=== PATIENT | female | born 1940 | race Caucasian/White ===

== ENCOUNTER 2016-11-23 20:15 | Inpatient (IN) | payer OTHER, BC ==
--- NOTE | 2016-11-23 20:36 | DR.GENAD ---
HPI - Complaint/Symptoms Chief Complaint Doctors Comments: Patient complains of having a stomach virus for several days with diarrhea, nausea. Patient states she had chest pain earlier but none presently. States she is a patient of Dr. Jimenez and they have been talking about longterm placement so she can get help taking care of herself. She has been having right lower abdominal pain but denies hematuria , melanic, dysuria, fever or cills. States she has heart problems with a stent and diabetes and high blood pressure. She denies tobacco or alcohol usage. - Nurses notes reviewed Nurses Notes Review: Yes - Source History Provided: Patient, EMS - Mode of Arrival Mode of Arrival: Stretcher - Timing Came on: Gradually - Duration Duration: Intermittent How lon Duration: Days - Location Location: right lower quadrant pain - Severity Severity: Moderate - Modifying Factors Worsens:: nothing Improves:: nothing PMH - PMH Past Medical History: Anxiety, Arthritis, Asthma, COPD, Diabetes, Dyslipidemia, Hypertension, Hypothyroidism, CT Past Surgical History: Yes Surgical History: Angioplasty/Stents, Appendectomy, Cholecystectomy, Hysterectomy, Ortho Surgery - Family History Family Medical History: Diabetes Mellitus, Cancer, CT, Coronary Artery Disease, Hypertension - Social History Do you use any recreational Drugs:: No ROS - Review of Systems Constitutional: No Symptoms Reported, Weakness, Loss of Appetite. negative: See HPI, Chills, Diaphoresis, Fever, Malaise, Irritable, Fatigue, Other Eyes: No Symptoms Reported ENTM: No Symptoms Reported Respiratoy: No Symptoms Reported Cardiovascular: No Symptoms Reported, Chest Pain. negative: See HPI, Edema, Palpitations, Syncope, Cyanosis, Skin Mottling, Other Gastrointestinal/Abdominal: No Symptoms Reported, Abdominal Pain, Diarrhea, Nausea Genitourinary: No Symptoms Reported, Frequency Neurological: No Symptoms Reported, Weakness, Problems Walking Musculoskeletal: No Symptoms Reported Integumentary: No Symptoms Reported Hematologic/Lymphatic: No Symptoms Reported Endocrine: No Symptoms Reported Psychiatric: No Symptoms Reported PE - Vital Signs Vitals: Blood Pressure [Right Arm] 118/57 Blood Pressure [Left Arm] 116/59 Blood Pressure 118/57 - General Limitations: No Limitations General Appearance: Alert, In No Apparent Distress - Head Head Exam: Normal Inspection, Atraumatic, Normocephalic - Eyes Eye exam: Normal Appearance, PERRL, EOMI. negative: Scleral Icterus, Conjunctival Injection, Nystagmus, Miosis, Mydrasis, Periorbital Swelling, Periorbital Tenderness, Other - ENT ENT Exam: Normal Exam, Normal Oropharynx, Normal External Ear Exam, Mucous Membranes Moist, TM's Normal Bilaterally External Ear Exam: Normal External Inspection TM/Canal Exam: Bilateral Normal Nose Exam: Normal Nose Exam Mouth Exam: Normal Inspection Throat Exam: Normal Inspection - Neck Neck Exam: Normal Inspection - Chest Chest Inspection: Normal Inspection, Symmetric Chest Wall Rise - Respiratory Respiratory Exam: Normal Lung Sounds Bilat Respiratory Exam: Bilateral Clear to Auscultation - Cardiovascular Cardiovascular Exam: Regular Rate, Normal Rhythm, Normal Heart Sounds, Systolic Murmur - Abdominal Exam Abdominal Exam: Normal Inspection, Normal Bowel Sounds, Soft Abdominal Tenderness: Epigastrium, Mild - Extremities Extremities Exam: Normal Inspection, Full ROM, Normal Capillary Refill. negative: Tenderness, Edema, Joint Swelling, Calf Tenderness, Other - Back Back Exam: Normal Inspection, Full ROM - Neurologic Neurological Exam: Alert, Oriented X3, CN II-XII Intact, Reflexes Normal. negative: Normal Gait (gait not tested) - Psychiatric Psychiatric Exam: Normal Affect, Normal Mood - Skin Skin Exam: Warm, Dry, Intact, Normal Color Course - Reevaluation 1st: Improved - Consultation Called: 23:49 Call Returned: 23:49 (Dr. Mckeon to admit) - Education/Counseling Education/Counseling: Patient, Family Educated On: Treatment, Diagnosis, Prognosis, Needs for Follow Up ROR - Labs Reviewed Laboratory Results Reviewed?: Yes (all labs and x-ray results reviewed and discussed with pataient) Result Diagrams: 11/23/16 20:31 11/23/16 21:00 Laboratory: WBC 6.5 X10^3/uL (3.6-10.0) 11/23/16 20:31 RBC 4.69 X10^6/uL (3.5-5.4) 11/23/16 20:31 Hgb 13.7 g/dL (12.0-16.0) 11/23/16 20:31 Hct 42.0 % (36.0-47.0) 11/23/16 20:31 MCV 89.6 fL (80.0-100.0) 11/23/16 20:31 MCH 29.3 pg (27.0-34.0) 11/23/16 20:31 MCHC 32.7 g/dL (33.0-35.0) L 11/23/16 20:31 RDW 15.8 % (11.6-16.5) 11/23/16 20:31 Plt Count 262 X10^3/uL (150.0-450.0) 11/23/16 20:31 MPV 8.0 fL (7.4-11.0) 11/23/16 20:31 Neut % 66.0 % (42.0-75.0) 11/23/16 20:31 Lymph % 20.9 % (21.0-51.0) L 11/23/16 20:31 [place] % 9.5 % (0.0-13.0) 11/23/16 20:31 Eos % 2.7 % (0.9-2.9) 11/23/16 20:31 Baso % 0.9 % (0.2-1.0) 11/23/16 20:31 Neut # 4.3 x10^3/uL (2.2-4.8) 11/23/16 20:31 Lymph # 1.4 X10^3/uL (1.3-2.9) 11/23/16 20:31 [place] # 0.6 x10^3/uL (0.3-0.8) 11/23/16 20:31 Eos # 0.2 x10^3/uL (0.0-0.2) 11/23/16 20:31 Baso # 0.1 X10^3/uL (0.0-0.1) 11/23/16 20:31 Absolute Nucleated RBC 0.1 /100WBC 11/23/16 20:31 INR Target Range - 11/23/16 21:00 INR 2.35 (0.8-1.3) H 11/23/16 21:00 PTT 32.9 SECONDS (22.9-36.5) 11/23/16 21:00 PTT Comment - 11/23/16 21:00 Sodium 140 mmol/L (136-145) 11/23/16 21:00 Corrected Sodium TNP 11/23/16 21:00 Potassium 3.7 mmol/L (3.5-5.1) 11/23/16 21:00 Chloride 107 mmol/L (98-107) 11/23/16 21:00 Carbon Dioxide 22.3 mmol/L (21-32) 11/23/16 21:00 BUN 21 mg/dL (7-18) H 11/23/16 21:00 Creatinine 1.04 mg/dL (0.55-1.02) H 11/23/16 21:00 Est GFR (MDRD) Af Amer > 60 (>60) 11/23/16 21:00 Est GFR (MDRD) Non-Af 55 (>60) L 11/23/16 21:00 Glucose 105 mg/dL (65-99) H 11/23/16 21:00 Calcium 9.4 mg/dL (8.5-10.1) 11/23/16 21:00 Corrected Calcium TNP 11/23/16 21:00 Magnesium 1.7 mg/dL (1.7-2.9) 11/23/16 21:00 Total Bilirubin 0.50 mg/dL (0.2-1.0) 11/23/16 21:00 AST 21 Units/L (15-37) 11/23/16 21:00 ALT 22 Units/L (12-78) 11/23/16 21:00 Alkaline Phosphatase 106 Units/L (46-116) 11/23/16 21:00 Creatine Kinase 71 Units/L (26-192) 11/23/16 21:00 CK-MB (CK-2) 1.2 ng/mL (0-4.0) 11/23/16 21:00 CK/CKMB % Calc 1.7 % (<4) 11/23/16 21:00 Troponin I < 0.02 ng/mL (0-1.5) 11/23/16 21:00 Total Protein 8.8 g/dL (6.4-8.2) H 11/23/16 21:00 Albumin 3.4 g/dL (3.4-5.0) 11/23/16 21:00 Globulin 5.4 g/dL (2.5-4.5) H 11/23/16 21:00 Albumin/Globulin Ratio 0.6 Ratio (1.1-2.1) L 11/23/16 21:00 Specimen Type Clean catch urine 11/23/16 22:21 Urine Color Yellow (YELLOW) 11/23/16 22:21 Urine Appearance Slightly hazy (CLEAR) 11/23/16 22:21 Urine pH 5.0 (5.0 - 8.0) 11/23/16 22:21 Ur Specific [place] 1.020 (1.000-1.030) 11/23/16 22:21 Urine Protein 2+ (NEGATIVE) 11/23/16 22:21 Urine Glucose (UA) Negative (NEGATIVE) 11/23/16 22:21 Urine Ketones Negative (NEGATIVE) 11/23/16 22:21 Urine Occult Blood 2+ (NEGATIVE) 11/23/16 22:21 Urine Nitrite Positive (NEGATIVE) 11/23/16 22:21 Urine Bilirubin Negative (NEGATIVE) 11/23/16 22:21 Urine Urobilinogen Normal (NORMAL) 11/23/16 22:21 Ur Leukocyte Esterase 3+ (NEGATIVE) 11/23/16 22:21 Urine RBC 0-3 /HPF (NEGATIVE) 11/23/16 22:21 Urine WBC 20-25 /HPF (NEGATIVE) 11/23/16 22:21 Ur Squamous Epith Cells Rare /HPF (NEGATIVE) 11/23/16 22:21 Urine Bacteria 2+ /HPF (NEGATIVE) 11/23/16 22:21 Ur Culture Indicated? Yes/culture set up 11/23/16 22:21 - XRAY XRAY Interpreted by: Radiologist (CXR: No acute cardiopulmonary disease) - Diagnosis Discharge Problem: Gastroenteritis, Hyperglycemia Urinary tract infection Qualifiers: Urinary tract infection type: acute cystitis Hematuria presence: without hematuria Qualified Code(s): N30.00 - Acute cystitis without hematuria Chronic kidney disease Qualifiers: Chronic kidney disease stage: stage 3 (moderate) Qualified Code(s): N18.3 - Chronic kidney disease, stage 3 (moderate) - Discharge Plan Disposition: ADMITTED INPATIENT Condition: Stable - Follow ups/Referrals Follow ups/Referrals: Pradip Jimenez [Primary Care Provider] - 3 days - Instructions
--- NOTE | 2016-11-23 21:07 | RAD ---
HISTORY: 75-year-old female with chest pain and shortness of breath. Study: Single frontal view of the chest. Comparison: Chest radiograph May 27, 2016 Findings: Study is limited secondary to patient body habitus, technique and excessive quantum mottle. The trachea is midline. The cardiac silhouette is stably enlarged. Chronic prominence of the inter stitium. Low lung volumes without focal consolidation, effusion or pneumothorax. The bony thorax is unremarkable. IMPRESSION: 1. No acute cardiopulmonary disease. Reported By:
[2016-11-23 21:10] LABS: BASOPHILS # (AUTO) 0.1 X10^3/uL (0.0-0.1); BASOPHILS % (AUTO) 0.9 % (0.2-1.0); EOSINOPHILS # (AUTO) 0.2 x10^3/uL (0.0-0.2); EOSINOPHILS % (AUTO) 2.7 % (0.9-2.9); HEMOGLOBIN 13.7 g/dL (12.0-16.0); LYMPHOCYTES # (AUTO) 1.4 X10^3/uL (1.3-2.9); LYMPHOCYTES % (AUTO) 20.9 % (21.0-51.0); MEAN CORPUSCULAR HEMOGLOBIN 29.3 pg (27.0-34.0); MEAN CORPUSCULAR HGB CONC 32.7 g/dL (33.0-35.0); MEAN CORPUSCULAR VOLUME 89.6 fL (80.0-100.0); MONOCYTES # (AUTO) 0.6 x10^3/uL (0.3-0.8); MONOCYTES % (AUTO) 9.5 % (0.0-13.0); NEUTROPHILS # (AUTO) 4.3 x10^3/uL (2.2-4.8); PLATELET COUNT 262 X10^3/uL (150.0-450.0); RED BLOOD COUNT 4.69 X10^6/uL (3.5-5.4); RED CELL DISTRIBUTION WIDTH 15.8 % (11.6-16.5); WHITE BLOOD COUNT 6.5 X10^3/uL (3.6-10.0)
[2016-11-23 21:25] LABS: BLOOD UREA NITROGEN 21 mg/dL (7-18); CALCIUM 9.4 mg/dL (8.5-10.1); CARBON DIOXIDE 22.3 mmol/L (21-32); CHLORIDE 107 mmol/L (98-107); CREATININE 1.04 mg/dL (0.55-1.02); GLUCOSE 105 mg/dL (65-99); SODIUM 140 mmol/L (136-145); TROPONIN I < 0.02 ng/mL (0-1.5); eGFR BLACK RACES > 60 (>60); eGFR NON BLACK RACES 55 (>60)
[2016-11-23 21:30] LABS: ALANINE AMINOTRANSFERASE 22 Units/L (12-78); ALBUMIN 3.4 g/dL (3.4-5.0); ALKALINE PHOSPHATASE 106 Units/L (46-116); ASPARTATE AMINO TRANSFERASE 21 Units/L (15-37); CKMB % 1.7 % (<4); CREATINE KINASE 71 Units/L (26-192); CREATINE KINASE MB 1.2 ng/mL (0-4.0); MAGNESIUM 1.7 mg/dL (1.7-2.9); TOTAL PROTEIN 8.8 g/dL (6.4-8.2)
[2016-11-23 22:27] LABS: BILIRUBIN,URINE NEGATIVE (NEGATIVE); BLOOD/HEMOGLOBIN,URINE 2+ (NEGATIVE); GLUCOSE, URINE NEGATIVE (NEGATIVE); KETONES,URINE NEGATIVE (NEGATIVE); LEUKOCYTE ESTERASE ,URINE 3+ (NEGATIVE); NITRITES,URINE POSITIVE (NEGATIVE); PROTEIN,URINE 2+ (NEGATIVE); UROBILINOGEN,URINE NORMAL (NORMAL)
[2016-11-23 22:40] LABS: APPEARANCE,URINE SLIGHTLY HAZY (CLEAR); BACTERIA,URINE 2+ /HPF (NEGATIVE); COLOR,URINE YELLOW (YELLOW); RBC,URINE 0-3 /HPF (NEGATIVE); SQUAMOUS EPITHELIAL CELL,UR RARE /HPF (NEGATIVE)
[2016-11-23] MEDS: NS 1000 ML 1,000 ML IV SCH (23:38)
[2016-11-24] MEDS ORDERED: ZOFRAN INJ 4 MG VIAL IVP PRN (00:29)
[2016-11-24] MEDS: ROCEPHIN VIAL 1 GM 1 GM in NS 50 ML IV + SPIKE MINIBAG* 50 ML IV SCH ×2 (01:03→08:41)
[2016-11-24 01:23] VITALS: BMI 50.1
[2016-11-24] MEDS: BUTT CREAM (COMPOUND) TOP PRN ×2 (01:31→13:32)
[2016-11-24 05:17] LABS: BASOPHILS # (AUTO) 0.1 X10^3/uL (0.0-0.1); BASOPHILS % (AUTO) 0.7 % (0.2-1.0); EOSINOPHILS # (AUTO) 0.2 x10^3/uL (0.0-0.2); EOSINOPHILS % (AUTO) 2.2 % (0.9-2.9); HEMATOCRIT 40.2 % (36.0-47.0); HEMOGLOBIN 13.1 g/dL (12.0-16.0); LYMPHOCYTES # (AUTO) 1.6 X10^3/uL (1.3-2.9); LYMPHOCYTES % (AUTO) 21.5 % (21.0-51.0); MEAN CORPUSCULAR HEMOGLOBIN 29.1 pg (27.0-34.0); MEAN CORPUSCULAR HGB CONC 32.5 g/dL (33.0-35.0); MEAN CORPUSCULAR VOLUME 89.4 fL (80.0-100.0); MEAN PLATELET VOLUME 7.9 fL (7.4-11.0); MONOCYTES # (AUTO) 0.7 x10^3/uL (0.3-0.8); MONOCYTES % (AUTO) 9.6 % (0.0-13.0); NEUTROPHILS # (AUTO) 4.9 x10^3/uL (2.2-4.8); PLATELET COUNT 255 X10^3/uL (150.0-450.0); RED CELL DISTRIBUTION WIDTH 15.4 % (11.6-16.5); WHITE BLOOD COUNT 7.5 X10^3/uL (3.6-10.0)
[2016-11-24 05:25] LABS: ALANINE AMINOTRANSFERASE 22 Units/L (12-78); ALBUMIN 3.1 g/dL (3.4-5.0); ALKALINE PHOSPHATASE 97 Units/L (46-116); ASPARTATE AMINO TRANSFERASE 18 Units/L (15-37); BLOOD UREA NITROGEN 20 mg/dL (7-18); CALCIUM 8.9 mg/dL (8.5-10.1); CARBON DIOXIDE 20.5 mmol/L (21-32); CHLORIDE 109 mmol/L (98-107); COR CA(FOR HYPOALB) 9.6 mg/dL (8.5-10.1); CREATININE 0.87 mg/dL (0.55-1.02); GLUCOSE 95 mg/dL (65-99); SODIUM 141 mmol/L (136-145); TOTAL PROTEIN 8.2 g/dL (6.4-8.2); eGFR BLACK RACES > 60 (>60); eGFR NON BLACK RACES > 60 (>60)
[2016-11-24] MEDS: PROTONIX INJ 40 MG VIAL 40 MG in NS 50 ML IV 50 ML IV SCH (08:41)
[2016-11-24] MEDS ORDERED: STERILE WATER IRRIGATION IR ONE (10:51)
[2016-11-24] MEDS ORDERED: LASIX PO PRN (12:08)
[2016-11-24] MEDS: NS 1000 ML 1,000 ML IV SCH (12:08)
[2016-11-24] MEDS ORDERED: ANTIVERT TAB 25 MG PO PRN (12:08)
[2016-11-24] MEDS: LOPRESSOR TAB 50 MG PO SCH ×2 (13:27→20:53)
[2016-11-24] MEDS: PERCOCET TAB 5/325 MG PO PRN ×2 (13:27→20:53)
[2016-11-24] MEDS: ALDACTONE TAB 25 MG PO SCH (13:27)
[2016-11-24] MEDS: ASPIRIN 81 MG CHEWTAB PO SCH (13:27)
[2016-11-24] MEDS: SYNTHROID 100 mcg TAB PO SCH (13:27)
[2016-11-24] MEDS: PROzac PO SCH (13:27)
[2016-11-24] MEDS: PILOCARPINE HCL 7.5 MG PO SCH ×2 (13:31→20:58)
[2016-11-24] MEDS: NIASPAN ER TAB 500 MG PO SCH (20:53)
[2016-11-24] MEDS: COUMADIN TAB 6 MG PO SCH (20:53)
[2016-11-24] MEDS: LIPITOR TAB 20 MG PO SCH (20:53)
[2016-11-24] MEDS: PATIENT'S HOME MEDICATION (Mirabegron [Myrbetriq] 25 MG) PO SCH (20:57)
[2016-11-25 05:23] LABS: BASOPHILS % (AUTO) 0.6 % (0.2-1.0); EOSINOPHILS # (AUTO) 0.3 x10^3/uL (0.0-0.2); EOSINOPHILS % (AUTO) 5.1 % (0.9-2.9); HEMATOCRIT 39.6 % (36.0-47.0); LYMPHOCYTES # (AUTO) 1.7 X10^3/uL (1.3-2.9); LYMPHOCYTES % (AUTO) 26.8 % (21.0-51.0); MEAN CORPUSCULAR HEMOGLOBIN 29.6 pg (27.0-34.0); MEAN CORPUSCULAR HGB CONC 32.8 g/dL (33.0-35.0); MEAN CORPUSCULAR VOLUME 90.2 fL (80.0-100.0); MEAN PLATELET VOLUME 8.2 fL (7.4-11.0); MONOCYTES # (AUTO) 0.6 x10^3/uL (0.3-0.8); MONOCYTES % (AUTO) 9.7 % (0.0-13.0); NEUTROPHILS # (AUTO) 3.6 x10^3/uL (2.2-4.8); NEUTROPHILS % (AUTO) 57.8 % (42.0-75.0); PLATELET COUNT 233 X10^3/uL (150.0-450.0); RED BLOOD COUNT 4.39 X10^6/uL (3.5-5.4); RED CELL DISTRIBUTION WIDTH 15.8 % (11.6-16.5); WHITE BLOOD COUNT 6.2 X10^3/uL (3.6-10.0)
[2016-11-25 05:28] LABS: ALANINE AMINOTRANSFERASE 22 Units/L (12-78); ALBUMIN 2.8 g/dL (3.4-5.0); ALKALINE PHOSPHATASE 95 Units/L (46-116); ASPARTATE AMINO TRANSFERASE 19 Units/L (15-37); BLOOD UREA NITROGEN 17 mg/dL (7-18); CALCIUM 8.8 mg/dL (8.5-10.1); CARBON DIOXIDE 21.3 mmol/L (21-32); CHLORIDE 109 mmol/L (98-107); COR CA(FOR HYPOALB) 9.8 mg/dL (8.5-10.1); CREATININE 0.94 mg/dL (0.55-1.02); GLUCOSE 110 mg/dL (65-99); SODIUM 140 mmol/L (136-145); TOTAL PROTEIN 7.8 g/dL (6.4-8.2); eGFR BLACK RACES > 60 (>60); eGFR NON BLACK RACES > 60 (>60)
[2016-11-25] MEDS: NS 1000 ML 1,000 ML IV SCH (06:03)
[2016-11-25] MEDS: PILOCARPINE HCL 7.5 MG PO SCH ×2 (09:33→21:33)
[2016-11-25] MEDS: PROTONIX INJ 40 MG VIAL 40 MG in NS 50 ML IV 50 ML IV SCH (09:35)
[2016-11-25] MEDS: ALDACTONE TAB 25 MG PO SCH (09:36)
[2016-11-25] MEDS: ROCEPHIN VIAL 1 GM 1 GM in NS 50 ML IV + SPIKE MINIBAG* 50 ML IV SCH (09:36)
[2016-11-25] MEDS: LOPRESSOR TAB 50 MG PO SCH (09:36)
[2016-11-25] MEDS: PROzac PO SCH (09:36)
[2016-11-25] MEDS: NORVASC TAB 5 MG PO SCH (09:36)
[2016-11-25] MEDS: ASPIRIN 81 MG CHEWTAB PO SCH (09:37)
[2016-11-25] MEDS: LOTENSIN TAB 10 MG PO SCH (09:37)
[2016-11-25] MEDS: SYNTHROID 100 mcg TAB PO SCH (09:37)
[2016-11-25 12:53] LABS: CKMB % 3.4 % (<4); CREATINE KINASE 115 Units/L (26-192); CREATINE KINASE MB 3.9 ng/mL (0-4.0); TROPONIN I < 0.02 ng/mL (0-1.5)
[2016-11-25 18:04] LABS: CKMB % 2.8 % (<4); CREATINE KINASE 105 Units/L (26-192); CREATINE KINASE MB 2.9 ng/mL (0-4.0); TROPONIN I < 0.02 ng/mL (0-1.5)
[2016-11-25] MEDS: COUMADIN TAB 6 MG PO SCH (21:32)
[2016-11-25] MEDS: LIPITOR TAB 20 MG PO SCH (21:32)
[2016-11-25] MEDS: NIASPAN ER TAB 500 MG PO SCH (21:32)
[2016-11-25] MEDS: PATIENT'S HOME MEDICATION (Mirabegron [Myrbetriq] 25 MG) PO SCH (21:32)
[2016-11-26 00:13] LABS: CKMB % 2.7 % (<4); CREATINE KINASE 88 Units/L (26-192); CREATINE KINASE MB 2.4 ng/mL (0-4.0); TROPONIN I < 0.02 ng/mL (0-1.5)
[2016-11-26] MEDS: LOPRESSOR TAB 50 MG PO SCH ×3 (00:26→21:59)
[2016-11-26 05:20] LABS: ALANINE AMINOTRANSFERASE 41 Units/L (12-78); ALBUMIN 2.8 g/dL (3.4-5.0); ALKALINE PHOSPHATASE 151 Units/L (46-116); ASPARTATE AMINO TRANSFERASE 42 Units/L (15-37); BLOOD UREA NITROGEN 21 mg/dL (7-18); CARBON DIOXIDE 20.6 mmol/L (21-32); CHLORIDE 110 mmol/L (98-107); CREATININE 1.02 mg/dL (0.55-1.02); GLUCOSE 85 mg/dL (65-99); SODIUM 141 mmol/L (136-145); TOTAL PROTEIN 7.5 g/dL (6.4-8.2); eGFR BLACK RACES > 60 (>60); eGFR NON BLACK RACES 56 (>60)
[2016-11-26 05:31] LABS: BASOPHILS # (AUTO) 0.1 X10^3/uL (0.0-0.1); BASOPHILS % (AUTO) 0.9 % (0.2-1.0); EOSINOPHILS # (AUTO) 0.3 x10^3/uL (0.0-0.2); EOSINOPHILS % (AUTO) 4.9 % (0.9-2.9); HEMATOCRIT 37.2 % (36.0-47.0); HEMOGLOBIN 12.1 g/dL (12.0-16.0); LYMPHOCYTES # (AUTO) 1.8 X10^3/uL (1.3-2.9); LYMPHOCYTES % (AUTO) 28.7 % (21.0-51.0); MEAN CORPUSCULAR HEMOGLOBIN 29.4 pg (27.0-34.0); MEAN CORPUSCULAR HGB CONC 32.6 g/dL (33.0-35.0); MEAN CORPUSCULAR VOLUME 90.3 fL (80.0-100.0); MEAN PLATELET VOLUME 8.3 fL (7.4-11.0); MONOCYTES # (AUTO) 0.5 x10^3/uL (0.3-0.8); MONOCYTES % (AUTO) 8.3 % (0.0-13.0); NEUTROPHILS # (AUTO) 3.6 x10^3/uL (2.2-4.8); NEUTROPHILS % (AUTO) 57.2 % (42.0-75.0); PLATELET COUNT 229 X10^3/uL (150.0-450.0); RED BLOOD COUNT 4.11 X10^6/uL (3.5-5.4); RED CELL DISTRIBUTION WIDTH 15.8 % (11.6-16.5); WHITE BLOOD COUNT 6.2 X10^3/uL (3.6-10.0)
[2016-11-26] MEDS: NS 1000 ML 1,000 ML IV SCH ×3 (05:33→22:03)
[2016-11-26] MEDS: ROCEPHIN VIAL 1 GM 1 GM in NS 50 ML IV + SPIKE MINIBAG* 50 ML IV SCH (09:53)
[2016-11-26] MEDS ORDERED: TORADOL 30 MG VIAL IVP PRN (09:53)
[2016-11-26] MEDS: PILOCARPINE HCL 7.5 MG PO SCH ×2 (09:53→22:02)
[2016-11-26] MEDS: ASPIRIN 81 MG CHEWTAB PO SCH (09:54)
[2016-11-26] MEDS: SYNTHROID 100 mcg TAB PO SCH (09:54)
[2016-11-26] MEDS: PROTONIX INJ 40 MG VIAL 40 MG in NS 50 ML IV 50 ML IV SCH (09:54)
[2016-11-26] MEDS: LOTENSIN TAB 10 MG PO SCH (09:54)
[2016-11-26] MEDS: PROzac PO SCH (09:54)
[2016-11-26] MEDS: ALDACTONE TAB 25 MG PO SCH (09:54)
[2016-11-26] MEDS: NORVASC TAB 5 MG PO SCH (09:54)
[2016-11-26] MEDS: PYRIDIUM PO SCH ×2 (13:14→17:26)
--- NOTE | 2016-11-26 15:46 | PCM.PROG ---
Progress Note - Progress Note for Day of Date: 11/25/16 - Subjective Subjective: Argelia is a 75yo white femal who presented to the emergency room on 11/24 wi complaints of nausea, vomiting and diarrhea that has been going on for several days, she was also experiencing some increased confusion. Patient was admitted with diagnosis of UTI and Gastroenteritis. Patient states she is feeling somewhat better this am. Her urine culture came back a E-Coli and is currently on rocephin which is sensitive so we will continue this. Serial EKS and CE have remain normal with the exception of atrial fibrillation which is chronic. Chest Xray showed no acture cardiopulmonary disease. We are going to continue observe patient and repeat labs in the am. Patient has not any more episodes of vomiting or diarrhea. Labs are within normal limites [facility] the exception of MCHC 32.8, Eos% 5.1, Eos# 0.3, Chloride 109, Glucose 110, Albumin 2.8, Globulin 5.0 - Past Medical Family Social History Past Med/Fam/Surg Hx: No changes since H&P Allergies: Allergies Sulfa Drugs Allergy (Unknown, Verified 05/09/16 15:38) - Review of Systems ROS: No change since H&P - Vital Signs and I&O's Intake and Output: Intake & Output 11/24/16 11/25/16 11/26/16 11/27/16 11:59 11:59 11:59 11:59 Intake Total 720 Balance 720 - Physical Exam Oriented: Normal Eyes: Normal Ear: Normal Nose: Normal Throat: Normal Respiratory: Normal Cardiovascular: Normal : Dysuria, Frequency Auscultation: Bowel Sounds: Normal Palpation: Normal Tenderness: Suprapubic Skin: Normal Musculoskeletal: Instability Psychiatric: Normal Mood Description: Calm Affect: Normal Speech Pattern: Clear, Appropriate - Laboratory and Diagnostics Result Diagrams: 11/26/16 04:10 11/26/16 04:10 Labs: MCHC 32.8, Eos% 5.1, Eos# 0.3, Chloride 109, Glucose 110, Albumin 2.8, Globulin 5.0 Rhythm: NSR - Plan (1) Gastroenteritis Status: Acute Plan: continue IVF antiemetic as needed, monitor labs (2) E. coli UTI Status: Acute Plan: Continue rocephin IV
--- NOTE | 2016-11-26 16:00 | PCM.PROG ---
Progress Note - Progress Note for Day of Date: 11/26/16 - Subjective Subjective: Argelia is a 75yo white femal who presented to the emergency room on 11/24 wiht complaints of nausea, vomiting and diarrhea that has been going on for several days, she was also experiencing some increased confusion. Patient was admitted with diagnosis of UTI and Gastroenteritis. Patient states she is feeling better this am she has complaints of bladder pain we are going to start toradol 30mg iv q6hr prn Pyridium 200mg TID. We are going to continue observe patient and repeat labs in the am. Patient has not any more episodes of vomiting or diarrhea. We will continue the rocephin iv as it is sensitive to E- Coli. Labs are within normal limites [facility] the exception of MCHC 32.5, Neut# 4.9 , Chloride 110, Carbon Dioxide 20.6, BUN 21, Est GFR 42, AST 42, Alkaline Phosphate 151, Albumin 2.8, Globulin 4.7 - Past Medical Family Social History Past Med/Fam/Surg Hx: No changes since H&P Allergies: Allergies Sulfa Drugs Allergy (Unknown, Verified 05/09/16 15:38) - Review of Systems ROS: No change since H&P - Vital Signs and I&O's Vital Signs: 97.4, 51, 18, 92% on Bipap, 102/55 Intake and Output: Intake & Output 11/24/16 11/25/16 11/26/16 11/27/16 11:59 11:59 11:59 11:59 Intake Total 720 Balance 720 - Physical Exam Oriented: Normal Eyes: Normal Ear: Normal Nose: Normal Throat: Normal Respiratory: Normal Cardiovascular: Normal : Dysuria, Frequency Auscultation: Bowel Sounds: Normal Tenderness: Suprapubic Skin: Normal Musculoskeletal: Instability Psychiatric: Normal Mood Description: Calm Affect: Normal Speech Pattern: Clear, Appropriate - Laboratory and Diagnostics Result Diagrams: 11/26/16 04:10 11/26/16 04:10 Labs: Laboratory WBC 6.2 X10^3/uL (3.6-10.0) 11/26/16 04:10 RBC 4.11 X10^6/uL (3.5-5.4) 11/26/16 04:10 Hgb 12.1 g/dL (12.0-16.0) 11/26/16 04:10 Hct 37.2 % (36.0-47.0) 11/26/16 04:10 MCV 90.3 fL (80.0-100.0) 11/26/16 04:10 MCH 29.4 pg (27.0-34.0) 11/26/16 04:10 MCHC 32.6 g/dL (33.0-35.0) L 11/26/16 04:10 RDW 15.8 % (11.6-16.5) 11/26/16 04:10 Plt Count 229 X10^3/uL (150.0-450.0) 11/26/16 04:10 MPV 8.3 fL (7.4-11.0) 11/26/16 04:10 Neut % 57.2 % (42.0-75.0) 11/26/16 04:10 Lymph % 28.7 % (21.0-51.0) 11/26/16 04:10 [place] % 8.3 % (0.0-13.0) 11/26/16 04:10 Eos % 4.9 % (0.9-2.9) H 11/26/16 04:10 Baso % 0.9 % (0.2-1.0) 11/26/16 04:10 Neut # 3.6 x10^3/uL (2.2-4.8) 11/26/16 04:10 Lymph # 1.8 X10^3/uL (1.3-2.9) 11/26/16 04:10 [place] # 0.5 x10^3/uL (0.3-0.8) 11/26/16 04:10 Eos # 0.3 x10^3/uL (0.0-0.2) H 11/26/16 04:10 Baso # 0.1 X10^3/uL (0.0-0.1) 11/26/16 04:10 Absolute Nucleated RBC 0.5 /100WBC 11/26/16 04:10 INR Target Range - 11/23/16 21:00 INR 2.35 (0.8-1.3) H 11/23/16 21:00 PTT 32.9 SECONDS (22.9-36.5) 11/23/16 21:00 PTT Comment - 11/23/16 21:00 Sodium 141 mmol/L (136-145) 11/26/16 04:10 Corrected Sodium TNP 11/26/16 04:10 Potassium 4.2 mmol/L (3.5-5.1) 11/26/16 04:10 Chloride 110 mmol/L (98-107) H 11/26/16 04:10 Carbon Dioxide 20.6 mmol/L (21-32) L 11/26/16 04:10 BUN 21 mg/dL (7-18) H 11/26/16 04:10 Creatinine 1.02 mg/dL (0.55-1.02) 11/26/16 04:10 Est GFR (MDRD) Af Amer > 60 (>60) 11/26/16 04:10 Est GFR (MDRD) Non-Af 56 (>60) L 11/26/16 04:10 Glucose 85 mg/dL (65-99) 11/26/16 04:10 Calcium 9.0 mg/dL (8.5-10.1) 11/26/16 04:10 Corrected Calcium 10.0 mg/dL (8.5-10.1) 11/26/16 04:10 Magnesium 1.7 mg/dL (1.7-2.9) 11/23/16 21:00 Total Bilirubin 0.40 mg/dL (0.2-1.0) 11/26/16 04:10 AST 42 Units/L (15-37) H 11/26/16 04:10 ALT 41 Units/L (12-78) 11/26/16 04:10 Alkaline Phosphatase 151 Units/L (46-116) H 11/26/16 04:10 Creatine Kinase 88 Units/L (26-192) 11/25/16 23:20 CK-MB (CK-2) 2.4 ng/mL (0-4.0) 11/25/16 23:20 CK/CKMB % Calc 2.7 % (<4) 11/25/16 23:20 Troponin I < 0.02 ng/mL (0-1.5) 11/25/16 23:20 Total Protein 7.5 g/dL (6.4-8.2) 11/26/16 04:10 Albumin 2.8 g/dL (3.4-5.0) L 11/26/16 04:10 Globulin 4.7 g/dL (2.5-4.5) H 11/26/16 04:10 Albumin/Globulin Ratio 0.6 Ratio (1.1-2.1) L 11/26/16 04:10 Specimen Type Clean catch urine 11/23/16 22:21 Urine Color Yellow (YELLOW) 11/23/16 22:21 Urine Appearance Slightly hazy (CLEAR) 11/23/16 22:21 Urine pH 5.0 (5.0 - 8.0) 11/23/16 22:21 Ur Specific [place] 1.020 (1.000-1.030) 11/23/16 22:21 Urine Protein 2+ (NEGATIVE) 11/23/16 22:21 Urine Glucose (UA) Negative (NEGATIVE) 11/23/16 22:21 Urine Ketones Negative (NEGATIVE) 11/23/16 22:21 Urine Occult Blood 2+ (NEGATIVE) 11/23/16 22:21 Urine Nitrite Positive (NEGATIVE) 11/23/16 22:21 Urine Bilirubin Negative (NEGATIVE) 11/23/16 22:21 Urine Urobilinogen Normal (NORMAL) 11/23/16 22:21 Ur Leukocyte Esterase 3+ (NEGATIVE) 11/23/16 22:21 Urine RBC 0-3 /HPF (NEGATIVE) 11/23/16 22:21 Urine WBC 20-25 /HPF (NEGATIVE) 11/23/16 22:21 Ur Squamous Epith Cells Rare /HPF (NEGATIVE) 11/23/16 22:21 Urine Bacteria 2+ /HPF (NEGATIVE) 11/23/16 22:21 Ur Culture Indicated? Yes/culture set up 11/23/16 22:21 - Plan (1) Gastroenteritis Status: Acute Plan: continue IVF antiemetic as needed, monitor labs (2) E. coli UTI Status: Acute Plan: Continue rocephin IV
[2016-11-26] MEDS: COUMADIN TAB 6 MG PO SCH (21:59)
[2016-11-26] MEDS: NIASPAN ER TAB 500 MG PO SCH (22:01)
[2016-11-26] MEDS: PERCOCET TAB 5/325 MG PO PRN (22:01)
[2016-11-26] MEDS: LIPITOR TAB 20 MG PO SCH (22:01)
[2016-11-26] MEDS: PATIENT'S HOME MEDICATION (Mirabegron [Myrbetriq] 25 MG) PO SCH (22:02)
[2016-11-27 05:47] LABS: ALANINE AMINOTRANSFERASE 36 Units/L (12-78); ALBUMIN 2.9 g/dL (3.4-5.0); ALKALINE PHOSPHATASE 145 Units/L (46-116); ASPARTATE AMINO TRANSFERASE 25 Units/L (15-37); BLOOD UREA NITROGEN 21 mg/dL (7-18); CALCIUM 8.7 mg/dL (8.5-10.1); CARBON DIOXIDE 21.7 mmol/L (21-32); CHLORIDE 109 mmol/L (98-107); COR CA(FOR HYPOALB) 9.6 mg/dL (8.5-10.1); CREATININE 1.06 mg/dL (0.55-1.02); GLUCOSE 87 mg/dL (65-99); SODIUM 140 mmol/L (136-145); TOTAL PROTEIN 7.6 g/dL (6.4-8.2); eGFR BLACK RACES > 60 (>60); eGFR NON BLACK RACES 54 (>60)
[2016-11-27] MEDS: PYRIDIUM PO SCH ×3 (06:01→17:41)
[2016-11-27 06:17] LABS: BASOPHILS # (AUTO) 0.1 X10^3/uL (0.0-0.1); BASOPHILS % (AUTO) 1.1 % (0.2-1.0); EOSINOPHILS # (AUTO) 0.3 x10^3/uL (0.0-0.2); EOSINOPHILS % (AUTO) 4.6 % (0.9-2.9); HEMATOCRIT 37.7 % (36.0-47.0); HEMOGLOBIN 12.3 g/dL (12.0-16.0); LYMPHOCYTES # (AUTO) 1.9 X10^3/uL (1.3-2.9); MEAN CORPUSCULAR HEMOGLOBIN 29.4 pg (27.0-34.0); MEAN CORPUSCULAR HGB CONC 32.7 g/dL (33.0-35.0); MEAN CORPUSCULAR VOLUME 90.1 fL (80.0-100.0); MEAN PLATELET VOLUME 8.3 fL (7.4-11.0); MONOCYTES # (AUTO) 0.5 x10^3/uL (0.3-0.8); MONOCYTES % (AUTO) 7.3 % (0.0-13.0); NEUTROPHILS # (AUTO) 4.1 x10^3/uL (2.2-4.8); PLATELET COUNT 227 X10^3/uL (150.0-450.0); RED BLOOD COUNT 4.18 X10^6/uL (3.5-5.4); RED CELL DISTRIBUTION WIDTH 15.7 % (11.6-16.5); WHITE BLOOD COUNT 6.9 X10^3/uL (3.6-10.0)
[2016-11-27 06:53] LABS: ERYTHROCYTE SEDIMENTATION RATE 34 MM/HOUR (0-20)
[2016-11-27] MEDS: ALDACTONE TAB 25 MG PO SCH (09:47)
[2016-11-27] MEDS: ASPIRIN 81 MG CHEWTAB PO SCH (09:47)
[2016-11-27] MEDS: LOTENSIN TAB 10 MG PO SCH (09:47)
[2016-11-27] MEDS: PROzac PO SCH (09:47)
[2016-11-27] MEDS: PILOCARPINE HCL 7.5 MG PO SCH (09:47)
[2016-11-27] MEDS: SYNTHROID 100 mcg TAB PO SCH (09:48)
[2016-11-27] MEDS: NORVASC TAB 5 MG PO SCH (09:48)
[2016-11-27] MEDS: ROCEPHIN VIAL 1 GM 1 GM in NS 50 ML IV + SPIKE MINIBAG* 50 ML IV SCH (09:48)
[2016-11-27] MEDS: PROTONIX INJ 40 MG VIAL 40 MG in NS 50 ML IV 50 ML IV SCH (09:48)
[2016-11-27] MEDS: NS 1000 ML 1,000 ML IV SCH (10:30)
[2016-11-27 17:33] VITALS: BP 123/60
--- NOTE | 2016-11-28 10:38 | DR.CARTERD ---
- Discharge Summary for: Discharge Summary for Date of:: 11/27/16 - Admission Date Date of Admission: 11/23/16 - Admission Diagnoses Admission Diagnosis: Gastroenteritis. UTI. Chronic Kidney Disease. Hyperlipidemia. Hypertension. COPD. Diabetes Mellitus - Discharge Date Discharge Date: 11/27/16 - Discharge Diagnoses Discharge Diagnosis: Gastroenteritis UTI Chronic Kidney Disease Hyperlipidemia Hypertension COPD Diabetes Mellitus - Hospital Course Hospital Course: Patient is a 75yo white female who presented to the emergency room on 11/24 with complaints of nausea, vomiting and diarrhea that has been going on for several days, she was also experiencing some increased confusion. Patient was admitted with diagnosis of UTI and Gastroenteritis. Patient she had complaints of bladder pain and was given toradol 30mg iv q6hr prn Pyridium 200mg TID which gave her relief. Patient feels much better and she has responded well to IV Ceftriaxone. We are going to discharge her home in stable condition and will send her home on Cipro PO Labs: Labs: MCHC 32.7, Eos% 4.6, Baso% 1.1, Eos# 0.36, ESR 34, INR 2.59, Chloride 109 , BUN 21, Creatinine 1.06, Est GFR 54, Alkaline Phosphate 145, Albumin 2.9, Globulin 4.7, Albumin/Globulin Ratio 0.6 Urine Culture positive for Ecoli - Discharge Medications Discharge Medications: Furosemide [LASIX TAB 40 MG *] 40 mg PO BID PRN 11/24/16 [History] Ciprofloxacin HCl [CIPRO 500 MG TAB *] 500 mg PO Q12H #14 tab 11/27/16 [Rx] - Discharge Disposition Discharge Disposition: Home
== END 2016-11-27 19:40 | disposition home health service (06) | DRG 392 ==
LOC: ER 20:15 → MED/SURG 11-24 00:25 → OBSVTOIN 11-26 08:30
PROVIDERS: ADMIT Internal Medicine; ATTEND Internal Medicine
DX: A08.39 Other viral enteritis (principal); N30.00 Acute cystitis without hematuria; B96.29 Other Escherichia coli [E. coli] as the cause of diseases classified elsewhere; N18.3 Chronic kidney disease, stage 3 (moderate); R41.82 Altered mental status, unspecified; R07.89 Other chest pain; R10.31 Right lower quadrant pain; E11.65 Type 2 diabetes mellitus with hyperglycemia; I10 Essential (primary) hypertension; J44.9 Chronic obstructive pulmonary disease, unspecified; E78.2 Mixed hyperlipidemia; E03.8 Other specified hypothyroidism; R94.31 Abnormal electrocardiogram [ECG] [EKG]; R11.2 Nausea with vomiting, unspecified; L89.159 Pressure ulcer of sacral region, unspecified stage; R26.89 Other abnormalities of gait and mobility
CPT/HCPCS: 36415; 71010; 80053; 81001; 82550; 82553; 83735; 84484; 85025; 85610; 85652; 85730; 86140; 87086; 87088; 87186; 93005; 93010; 94760; 96365; 96367; 97535; 99218; 99284; A4216; A4217; A4222; G8978; G8979; G8987; G8988; G0378; J0696; J1885; J2405

== ENCOUNTER 2017-01-24 10:42 | Inpatient (IN) | payer OTHER, BC ==
[2017-01-24] MEDS ORDERED: LASIX IVP ONE ×2 (11:16→11:33)
--- NOTE | 2017-01-24 11:16 | DR.SOBA ---
HPI - Time Seen Time seen: 11:00 - Primary Care Physician Primary Care Physician: NGUYỄN - HPI Comment HPI Comment: PROGRESIVE SOB AND LOWER EXTREMITY EDEMA TIMES FEW DAYS. WORSE THIS AM. HAVE ALSO ADDED ON WEIGHT. ON LASIX AND HAVE CHF AND COPD, NO FEVER. NEB TREATMENT DID NOT HELP TODAY. ON HOME OXYGEN. HERE VIA EMS. - Complaints Chief Complaint Doctors Comments: INCREASING SOB AND OXYGEN DESATURATION. Chief Complaint:: SOB - Reviewed Nurses Notes Reviewed: Yes - Source History Provided: Patient, Family Member - Mode of Arrival Mode of Arrival: Stretcher - Timing Onset of Chief Complaint: 01/24/17 - Duration Duration: Days - Context Onset:: At Rest, With Light Exertion PE Risk Factors:: None History of:: COPD, CHF Prehospital Care:: O2, Inhaled B2 - Modifying Factors Worsens:: Exertion, Lying Flat Improves:: Inhaler, Sitting Up - Associated Signs and Symptoms Associated Signs and Symptoms: Wheeze, Cough, Chest Pain - If Chest Pain Quality: Pressure like, Pleuritic, Other (TIGHTNESS) - If Cough Cough: Nonproductive, Clear PMH - PMH Past Medical History: Yes Past Medical History: Anxiety, Arthritis, Asthma, COPD, Diabetes, Dyslipidemia, Hypertension, Hypothyroidism, PR Past Surgical History: Yes Surgical History: Angioplasty/Stents, Appendectomy, Cholecystectomy, Hysterectomy, Ortho Surgery - Family History History of Family Medical Conditions: Yes Family Medical History: Diabetes Mellitus, Cancer, PR, Coronary Artery Disease, Hypertension - Social History Do you use any recreational Drugs:: No - infectious screening In the last 2 months have you had wt loss of >10#?: NO Have you had fever, night sweats or hemotysis?: No Have you traveled outside the country in the last 6 months?: No Isolation: Standard ROS - Review of Systems Constitutional: Weakness, Fatigue. negative: Chills, Fever Eyes: No Symptoms Reported. negative: Eye Pain, Discharge ENTM: negative: Ear Pain, Nose Discharge, Nose Congestion, Throat Pain Respiratoy: Non-Productive Cough, Short of Breath, Wheezing. negative: Hemoptysis Cardiovascular: Chest Pain, Edema. negative: Palpitations, Syncope Gastrointestinal/Abdominal: No Symptoms Reported. negative: Abdominal Pain, Diarrhea, Nausea, Vomiting Genitourinary: negative: Dysuria, Hematuria Neurological: Weakness, Dizziness Musculoskeletal: Muscle Pain Integumentary: No Symptoms Reported Hematologic/Lymphatic: No Symptoms Reported Endocrine: No Symptoms Reported All Other Systems: Reviewed and Negative PE - Vital Signs Vitals: Temperature 97.8 F Pulse Rate 60 Respiratory Rate 20 Blood Pressure [Right Arm] 123/60 Blood Pressure [Left Arm] 109/57 Blood Pressure 126/66 O2 Sat by Pulse Oximetry 80 - General Limitations: No Limitations General Appearance: Alert, In Distress - Head Head Exam: Normal Inspection - Eyes Eye exam: Normal Appearance - ENT ENT Exam: Normal External Ear Exam - Neck Neck Exam: Trachea Midline - Chest Chest Inspection: Symmetric Chest Wall Rise - Respiratory Respiratory Exam: Respiratory Distress Respiratory Exam: Bilateral Wheezing, Bilateral Rhonchi, Upper Wheezing, Upper Rhonchi, Lower Wheezing, Lower Rhonchi - Cardiovascular Cardiovascular Exam: Regular Rate, Normal Rhythm, Normal Heart Sounds - Abdominal Exam Abdominal Exam: Normal Bowel Sounds, Soft. negative: Tenderness - Extremities Extremities Exam: Edema - Neurologic Neurological Exam: Alert, Oriented X3, CN II-XII Intact, Reflexes Normal. negative: Motor Sensory Deficit - Psychiatric Psychiatric Exam: Normal Affect, Normal Mood - Skin Skin Exam: Normal Color MDM - Additional Information Obtained Additional Information Obtained From: Family - Differential Diagnosis Differential Diagnosis: CHF, COPD, Mycardial Infarction, Pneumonia, Pneumothorax , Pulmonary embolism, Respiratory Insufficiency Course - Treatment Treatment: SEE ORDERS. LASHARPREET IN IN ED. - Consultation Consultation Comments: DISCUSS PATIENT WITH DR. LUNA. HE WILL ADMIT PATIENT. - Education/Counseling Education/Counseling: Patient, Family, Education Educated On: Treatment, Diagnosis ROR - Labs Reviewed Laboratory Results Reviewed?: Yes Result Diagrams: 01/24/17 11:30 01/24/17 11:30 Laboratory: WBC 5.1 X10^3/uL (3.6-10.0) 01/24/17 11:30 RBC 4.32 X10^6/uL (3.5-5.4) 01/24/17 11:30 Hgb 12.7 g/dL (12.0-16.0) 01/24/17 11:30 Hct 38.3 % (36.0-47.0) 01/24/17 11:30 MCV 88.6 fL (80.0-100.0) 01/24/17 11:30 MCH 29.4 pg (27.0-34.0) 01/24/17 11:30 MCHC 33.1 g/dL (33.0-35.0) 01/24/17 11:30 RDW 16.7 % (11.6-16.5) H 01/24/17 11:30 Plt Count 233 X10^3/uL (150.0-450.0) 01/24/17 11:30 MPV 7.7 fL (7.4-11.0) 01/24/17 11:30 Neut % 71.9 % (42.0-75.0) 01/24/17 11:30 Lymph % 16.9 % (21.0-51.0) L 01/24/17 11:30 Coleman % 7.7 % (0.0-13.0) 01/24/17 11:30 Eos % 2.5 % (0.9-2.9) 01/24/17 11:30 Baso % 1.0 % (0.2-1.0) 01/24/17 11:30 Neut # 3.6 x10^3/uL (2.2-4.8) 01/24/17 11:30 Lymph # 0.9 X10^3/uL (1.3-2.9) L 01/24/17 11:30 Coleman # 0.4 x10^3/uL (0.3-0.8) 01/24/17 11:30 Eos # 0.1 x10^3/uL (0.0-0.2) 01/24/17 11:30 Baso # 0.1 X10^3/uL (0.0-0.1) 01/24/17 11:30 Absolute Nucleated RBC 0.0 /100WBC 01/24/17 11:30 Sodium 138 mmol/L (136-145) 01/24/17 11:30 Corrected Sodium TNP 01/24/17 11:30 Potassium 3.8 mmol/L (3.5-5.1) 01/24/17 11:30 Chloride 103 mmol/L (98-107) 01/24/17 11:30 Carbon Dioxide 28.3 mmol/L (21-32) 01/24/17 11:30 BUN 15 mg/dL (7-18) 01/24/17 11:30 Creatinine 1.01 mg/dL (0.55-1.02) 01/24/17 11:30 Est GFR (MDRD) Af Amer > 60 (>60) 01/24/17 11:30 Est GFR (MDRD) Non-Af 57 (>60) L 01/24/17 11:30 Glucose 104 mg/dL (65-99) H 01/24/17 11:30 Calcium 8.8 mg/dL (8.5-10.1) 01/24/17 11:30 Corrected Calcium 9.4 mg/dL (8.5-10.1) 01/24/17 11:30 Total Bilirubin 1.10 mg/dL (0.2-1.0) H 01/24/17 11:30 AST 17 Units/L (15-37) 01/24/17 11:30 ALT 17 Units/L (12-78) 01/24/17 11:30 Alkaline Phosphatase 124 Units/L (46-116) H 01/24/17 11:30 Creatine Kinase 90 Units/L (26-192) 01/24/17 13:05 CK-MB (CK-2) 1.4 ng/mL (0-4.0) 01/24/17 13:05 CK/CKMB % Calc 1.6 % (<4) 01/24/17 13:05 Troponin I < 0.02 ng/mL (0-1.5) 01/24/17 13:05 B-Natriuretic Peptide 281 pg/mL (0-79) H 01/24/17 11:30 Total Protein 8.3 g/dL (6.4-8.2) H 01/24/17 11:30 Albumin 3.3 g/dL (3.4-5.0) L 01/24/17 11:30 Globulin 5.0 g/dL (2.5-4.5) H 01/24/17 11:30 Albumin/Globulin Ratio 0.7 Ratio (1.1-2.1) L 01/24/17 11:30 Specimen Type Catherized urine 01/24/17 11:48 Urine Color Yellow (YELLOW) 01/24/17 11:48 Urine Appearance Hazy (CLEAR) 01/24/17 11:48 Urine pH 5.0 (5.0 - 8.0) 01/24/17 11:48 Ur Specific [place] 1.020 (1.000-1.030) 01/24/17 11:48 Urine Protein 1+ (NEGATIVE) 01/24/17 11:48 Urine Glucose (UA) Negative (NEGATIVE) 01/24/17 11:48 Urine Ketones Negative (NEGATIVE) 01/24/17 11:48 Urine Occult Blood 2+ (NEGATIVE) 01/24/17 11:48 Urine Nitrite Negative (NEGATIVE) 01/24/17 11:48 Urine Bilirubin Negative (NEGATIVE) 01/24/17 11:48 Urine Urobilinogen Normal (NORMAL) 01/24/17 11:48 Ur Leukocyte Esterase 1+ (NEGATIVE) 01/24/17 11:48 Urine RBC 3-5 /HPF (NEGATIVE) 01/24/17 11:48 Urine WBC 3-5 /HPF (NEGATIVE) 01/24/17 11:48 Ur Squamous Epith Cells Negative /HPF (NEGATIVE) 01/24/17 11:48 Urine Bacteria Trace /HPF (NEGATIVE) 01/24/17 11:48 Ur Culture Indicated? No/not indicated 01/24/17 11:48 - XRAY XRAY Interpreted by: Radiologist XRAY Findings: REPORT DISCUSS WITH PATIENT AND HER FAMILY. - EKG Rhythm: Afib (CONTROL RATE. EKG NPTED.) - Diagnosis Discharge Problem: Pulmonary edema, CHF (congestive heart failure), Respiratory distress, Atrial fibrillation with controlled ventricular response - Discharge Plan Disposition: 09 ADMITTED INPATIENT Condition: Fair - Follow ups/Referrals - Instructions
--- NOTE | 2017-01-24 11:28 | RAD ---
HISTORY: Chest pain, fluid on lungs, shortness of breath Study: Single-view chest, done portably Comparison: November 23, 2016 Findings: Cardiac monitoring electrodes are noted on the chest. The trachea is midline. There is cardiomegaly, pulmonary vascular congestion, CHF and signs of pulmonary interstitial edema bilaterally with likel y alveolar edema in the lung bases. A small right-sided pleural effusion is not reliably excluded. O sseous structures are intact. There is an old fracture of the right proximal humerus. IMPRESSION: Pulmonary edema, likely on a cardiogenic basis. Reported By:
[2017-01-24 11:42] LABS: BASOPHILS # (AUTO) 0.1 X10^3/uL (0.0-0.1); EOSINOPHILS # (AUTO) 0.1 x10^3/uL (0.0-0.2); EOSINOPHILS % (AUTO) 2.5 % (0.9-2.9); HEMATOCRIT 38.3 % (36.0-47.0); HEMOGLOBIN 12.7 g/dL (12.0-16.0); LYMPHOCYTES # (AUTO) 0.9 X10^3/uL (1.3-2.9); LYMPHOCYTES % (AUTO) 16.9 % (21.0-51.0); MEAN CORPUSCULAR HEMOGLOBIN 29.4 pg (27.0-34.0); MEAN CORPUSCULAR HGB CONC 33.1 g/dL (33.0-35.0); MEAN CORPUSCULAR VOLUME 88.6 fL (80.0-100.0); MEAN PLATELET VOLUME 7.7 fL (7.4-11.0); MONOCYTES # (AUTO) 0.4 x10^3/uL (0.3-0.8); MONOCYTES % (AUTO) 7.7 % (0.0-13.0); NEUTROPHILS # (AUTO) 3.6 x10^3/uL (2.2-4.8); NEUTROPHILS % (AUTO) 71.9 % (42.0-75.0); PLATELET COUNT 233 X10^3/uL (150.0-450.0); RED BLOOD COUNT 4.32 X10^6/uL (3.5-5.4); RED CELL DISTRIBUTION WIDTH 16.7 % (11.6-16.5); WHITE BLOOD COUNT 5.1 X10^3/uL (3.6-10.0)
[2017-01-24 11:57] LABS: BLOOD UREA NITROGEN 15 mg/dL (7-18); CALCIUM 8.8 mg/dL (8.5-10.1); CARBON DIOXIDE 28.3 mmol/L (21-32); CHLORIDE 103 mmol/L (98-107); CREATININE 1.01 mg/dL (0.55-1.02); GLUCOSE 104 mg/dL (65-99); SODIUM 138 mmol/L (136-145); TROPONIN I < 0.02 ng/mL (0-1.5); eGFR BLACK RACES > 60 (>60); eGFR NON BLACK RACES 57 (>60)
[2017-01-24 11:59] LABS: BILIRUBIN,URINE NEGATIVE (NEGATIVE); BLOOD/HEMOGLOBIN,URINE 2+ (NEGATIVE); GLUCOSE, URINE NEGATIVE (NEGATIVE); KETONES,URINE NEGATIVE (NEGATIVE); LEUKOCYTE ESTERASE ,URINE 1+ (NEGATIVE); NITRITES,URINE NEGATIVE (NEGATIVE); PROTEIN,URINE 1+ (NEGATIVE); UROBILINOGEN,URINE NORMAL (NORMAL)
[2017-01-24 12:02] LABS: ALANINE AMINOTRANSFERASE 17 Units/L (12-78); ALBUMIN 3.3 g/dL (3.4-5.0); ALKALINE PHOSPHATASE 124 Units/L (46-116); ASPARTATE AMINO TRANSFERASE 17 Units/L (15-37); B-TYPE NATRIURETIC PEPTIDE 281 pg/mL (0-79); CKMB % 1.5 % (<4); COR CA(FOR HYPOALB) 9.4 mg/dL (8.5-10.1); CREATINE KINASE 86 Units/L (26-192); CREATINE KINASE MB 1.3 ng/mL (0-4.0); TOTAL PROTEIN 8.3 g/dL (6.4-8.2)
[2017-01-24 12:06] LABS: APPEARANCE,URINE HAZY (CLEAR); BACTERIA,URINE TRACE /HPF (NEGATIVE); COLOR,URINE YELLOW (YELLOW); SQUAMOUS EPITHELIAL CELL,UR NEGATIVE /HPF (NEGATIVE)
[2017-01-24] MEDS ORDERED: ZOFRAN INJ 4 MG VIAL IVP PRN (12:57)
[2017-01-24] MEDS ORDERED: MORPHINE SULFATE INJ 2 MG ONE (13:22)
[2017-01-24 13:35] LABS: CKMB % 1.6 % (<4); CREATINE KINASE 90 Units/L (26-192); CREATINE KINASE MB 1.4 ng/mL (0-4.0); TROPONIN I < 0.02 ng/mL (0-1.5)
[2017-01-24 13:42] VITALS: BMI 57.6
[2017-01-24] MEDS ORDERED: SOLU-Medrol 40 MG VIAL IVP SCH (14:00)
[2017-01-24] MEDS: DUONEB 0.5 MG/3 MG NEB SCH ×4 (14:04→23:52)
[2017-01-24] MEDS: ASPIRIN 81 MG CHEWTAB PO SCH (18:16)
[2017-01-24] MEDS: SYNTHROID 100 mcg TAB PO SCH (18:16)
[2017-01-24] MEDS ORDERED: LASIX IVP SCH (21:00)
[2017-01-24] MEDS: COREG TAB 25 MG PO SCH (21:11)
[2017-01-24] MEDS: COUMADIN TAB 6 MG PO SCH (21:11)
[2017-01-24] MEDS: LIPITOR TAB 20 MG PO SCH (21:11)
[2017-01-24] MEDS: NORCO 5/325 MG TAB PO SCH (21:12)
[2017-01-24] MEDS: PATIENT'S HOME MEDICATION (Mirabegron [Myrbetriq] 25 MG) PO SCH (21:13)
[2017-01-25] MEDS: DUONEB 0.5 MG/3 MG NEB SCH ×7 (05:30→23:15)
[2017-01-25 06:19] LABS: BASOPHILS % (AUTO) 0.3 % (0.2-1.0); HEMATOCRIT 37.8 % (36.0-47.0); HEMOGLOBIN 12.8 g/dL (12.0-16.0); LYMPHOCYTES # (AUTO) 0.6 X10^3/uL (1.3-2.9); LYMPHOCYTES % (AUTO) 12.8 % (21.0-51.0); MEAN CORPUSCULAR HGB CONC 33.9 g/dL (33.0-35.0); MEAN CORPUSCULAR VOLUME 88.6 fL (80.0-100.0); MEAN PLATELET VOLUME 8.6 fL (7.4-11.0); MONOCYTES # (AUTO) 0.1 x10^3/uL (0.3-0.8); MONOCYTES % (AUTO) 2.8 % (0.0-13.0); NEUTROPHILS % (AUTO) 84.1 % (42.0-75.0); PLATELET COUNT 221 X10^3/uL (150.0-450.0); RED BLOOD COUNT 4.27 X10^6/uL (3.5-5.4); RED CELL DISTRIBUTION WIDTH 16.6 % (11.6-16.5); WHITE BLOOD COUNT 4.8 X10^3/uL (3.6-10.0)
[2017-01-25 06:30] LABS: ALBUMIN 3.1 g/dL (3.4-5.0); CALCIUM 8.7 mg/dL (8.5-10.1); CARBON DIOXIDE 30.6 mmol/L (21-32); CHOL/HDL RATIO 1.8 (0.0-5.0); COR CA(FOR HYPOALB) 9.4 mg/dL (8.5-10.1); CREATININE 1.17 mg/dL (0.55-1.02); MAGNESIUM 1.5 mg/dL (1.7-2.9); TOTAL PROTEIN 8.3 g/dL (6.4-8.2)
--- NOTE | 2017-01-25 07:04 | RAD ---
HISTORY: 76-year-old female with shortness of breath and COPD. Study: Frontal view of the chest. Comparison: Chest radiograph January 24, 2017 Findings: The trachea is midline. The cardiac silhouette is stably enlarged. Mild improvement of the pattern are aeration with persistent right effusion and pulmonary edema without pneumothorax. Soft tissues are unremarkable. Osseus structures are unremarkable. IMPRESSION: 1. Mild improvement in pattern of aeration bilaterally with persistent small right effusion and mil d pulmonary edema. Reported By:
--- NOTE | 2017-01-25 08:45 | DR.H&P ---
H&P - History & Physical for Day of: H&P Date: 01/24/17 - Chief Complaint Chief Complaint: shortness of breath - Allergies Allergies/Adverse Reactions: Allergies Allergy/AdvReac Type Severity Reaction Status Date / Time Sulfa (Sulfonamide Allergy Verified 01/24/17 12:12 Antibiotics) [SULFA] - History of Present Illness History of Present Illness: Wendyeint presented to the emergency room with complaints of shortness of breath, pateitn was found to thave pulmonary edema, patient admitted given supplemental oxygen and diuresed - Past Medical History Past Medical History: Anxiety, Arthritis, Asthma, COPD, Diabetes, Dyslipidemia, Hypertension, Hypothyroidism, [place] Additional Medical History: Cataracts, Atrial Fibrillation, Muscle Weakness - Past Surgical History Surgical History: Angioplasty/Stents, Appendectomy, Cholecystectomy, Hysterectomy, Ortho Surgery - Family History Family Medical History: Diabetes Mellitus, Cancer, [place], Coronary Artery Disease, Hypertension - Social History Does patient currently use any type of tobacco product: No Have you used tobacco products in the last 12 months: No Type of Tobacco Use: None Does any household member use tobacco: No Alcohol Use: None Drug Use: None - Medications Home Medications: Hydrocodone/Acetaminophen [Hydrocodon-Acetaminophen 5-325] 1 tab PO BID [History Confirmed 01/24/17] Tramadol HCl [Tramadol HCl ER] 200 mg PO DAILY 01/24/17 [History Confirmed 01/24] - Review of Systems Constitutional: No Symptoms Reported Eyes: No Symptoms Reported ENT: No Symptoms Reported Respiratory: Cough, Shortness of Breath Cardiovascular: Other (sweling and weight gain) Gastrointestinal: No Symptoms Reported Genitourinary: No Symptoms Reported Musculoskeletal: No Symptoms Reported Skin: No Symptoms Reported Neurological: No Symptoms Reported - Physical Exam Vital Signs: Temperature 98.4 F Pulse Rate [Apical] 64 Pulse Rate 70 Respiratory Rate 22 Blood Pressure [Right Arm] 130/77 Blood Pressure [Left Arm] 115/71 O2 Sat by Pulse Oximetry 87 Oriented: Normal Eyes: Normal Ear: Normal Nose: Normal Throat: Normal Respiratory: Rales Throughout Cardiovascular: Normal : Normal Auscultation: Bowel Sounds: Normal Palpation: Normal Tenderness: Normal Skin: Normal Musculoskeletal: Normal Psychiatric: Normal Mood Description: Calm, Appropriate Affect: Normal Speech Pattern: Clear, Appropriate - Assessment/Plan (1) Pulmonary edema Qualifiers: Chronicity: C Status: Acute Plan: Lasix IV (2) Respiratory distress Status: Acute Plan: supplemetnal oxygen
[2017-01-25] MEDS ORDERED: PROzac PO SCH (09:00)
[2017-01-25] MEDS ORDERED: SPIRONOLACTONE 25 MG PO SCH (09:00)
[2017-01-25] MEDS: PROzac PO SCH (09:24)
[2017-01-25] MEDS: NORCO 5/325 MG TAB PO SCH ×2 (09:24→20:28)
[2017-01-25] MEDS: COREG TAB 25 MG PO SCH ×2 (09:24→20:27)
[2017-01-25] MEDS: ASPIRIN 81 MG CHEWTAB PO SCH (09:24)
[2017-01-25] MEDS: SYNTHROID 100 mcg TAB PO SCH (09:24)
[2017-01-25] MEDS: ALDACTONE TAB 25 MG PO SCH (09:24)
[2017-01-25] MEDS: LASIX IVP SCH ×2 (09:26→20:28)
[2017-01-25] MEDS: TRAMADOL HCL 200 MG PO SCH (10:37)
[2017-01-25] MEDS: MORPHINE SULFATE INJ 2 MG IVP PRN (19:09)
[2017-01-25] MEDS ORDERED: STERILE WATER IRRIGATION IR ONE ×2 (20:21→20:23)
[2017-01-25] MEDS: LIPITOR TAB 20 MG PO SCH (20:27)
[2017-01-25] MEDS: COUMADIN TAB 6 MG PO SCH (20:29)
[2017-01-25] MEDS: PATIENT'S HOME MEDICATION (Mirabegron [Myrbetriq] 25 MG) PO SCH (20:29)
[2017-01-26] MEDS: DUONEB 0.5 MG/3 MG NEB SCH ×6 (05:07→21:08)
[2017-01-26 05:23] LABS: BASOPHILS % (AUTO) 0.6 % (0.2-1.0); EOSINOPHILS # (AUTO) 0.2 x10^3/uL (0.0-0.2); EOSINOPHILS % (AUTO) 2.8 % (0.9-2.9); HEMATOCRIT 39.4 % (36.0-47.0); HEMOGLOBIN 13.1 g/dL (12.0-16.0); LYMPHOCYTES # (AUTO) 1.4 X10^3/uL (1.3-2.9); LYMPHOCYTES % (AUTO) 18.4 % (21.0-51.0); MEAN CORPUSCULAR HEMOGLOBIN 29.6 pg (27.0-34.0); MEAN CORPUSCULAR HGB CONC 33.4 g/dL (33.0-35.0); MEAN CORPUSCULAR VOLUME 88.7 fL (80.0-100.0); MEAN PLATELET VOLUME 8.1 fL (7.4-11.0); MONOCYTES # (AUTO) 0.7 x10^3/uL (0.3-0.8); MONOCYTES % (AUTO) 8.7 % (0.0-13.0); NEUTROPHILS # (AUTO) 5.3 x10^3/uL (2.2-4.8); NEUTROPHILS % (AUTO) 69.5 % (42.0-75.0); PLATELET COUNT 226 X10^3/uL (150.0-450.0); RED BLOOD COUNT 4.44 X10^6/uL (3.5-5.4); RED CELL DISTRIBUTION WIDTH 16.3 % (11.6-16.5); WHITE BLOOD COUNT 7.7 X10^3/uL (3.6-10.0)
[2017-01-26 05:45] LABS: ALANINE AMINOTRANSFERASE 15 Units/L (12-78); ALBUMIN 3.1 g/dL (3.4-5.0); ALKALINE PHOSPHATASE 106 Units/L (46-116); ASPARTATE AMINO TRANSFERASE 16 Units/L (15-37); BLOOD UREA NITROGEN 25 mg/dL (7-18); CALCIUM 8.9 mg/dL (8.5-10.1); CARBON DIOXIDE 33.7 mmol/L (21-32); CHLORIDE 99 mmol/L (98-107); COR CA(FOR HYPOALB) 9.6 mg/dL (8.5-10.1); GLUCOSE 102 mg/dL (65-99); SODIUM 138 mmol/L (136-145); TOTAL PROTEIN 8.1 g/dL (6.4-8.2); eGFR BLACK RACES 56 (>60); eGFR NON BLACK RACES 46 (>60)
--- NOTE | 2017-01-26 06:57 | RAD ---
HISTORY: CHF Study: portable chest Comparison: 01/25/2017 Findings: The heart is mildly enlarged but unchanged. The pulmonary vessels are slightly less prominent centra lly . There is hazy right basilar opacity which is slightly less prominent with mild blunting of lef t right costophrenic angle which is decreased. IMPRESSION: Stable cardiomegaly with slowly resolving pulmonary congestion. Slowly resolving right basilar infiltrate or atelectasis and a small right pleural effusion which is less prominent. Reported By:
[2017-01-26] MEDS: PULMICORT NEB TX 0.5 MG NEB SCH ×2 (09:02→21:08)
[2017-01-26] MEDS: COREG TAB 25 MG PO SCH ×2 (10:21→21:23)
[2017-01-26] MEDS: ASPIRIN 81 MG CHEWTAB PO SCH (10:27)
[2017-01-26] MEDS: NORCO 5/325 MG TAB PO SCH ×2 (10:27→21:23)
[2017-01-26] MEDS: PROzac PO SCH (10:27)
[2017-01-26] MEDS: ALDACTONE TAB 25 MG PO SCH (10:28)
[2017-01-26] MEDS: LASIX PO SCH (10:28)
[2017-01-26] MEDS: SYNTHROID 100 mcg TAB PO SCH (10:28)
[2017-01-26] MEDS: NYSTATIN POWDER TOP SCH ×2 (10:29→21:24)
[2017-01-26] MEDS: TRAMADOL HCL 200 MG PO SCH (10:30)
[2017-01-26] MEDS ORDERED: DUONEB 0.5 MG/3 MG ONE (12:18)
[2017-01-26] MEDS: K-DUR TAB 20 MEQ PO SCH (15:25)
[2017-01-26] MEDS: COUMADIN TAB 6 MG PO SCH (21:23)
[2017-01-26] MEDS: LIPITOR TAB 20 MG PO SCH (21:23)
[2017-01-26] MEDS: PATIENT'S HOME MEDICATION (Mirabegron [Myrbetriq] 25 MG) PO SCH (21:24)
[2017-01-27] MEDS: DUONEB 0.5 MG/3 MG NEB SCH ×6 (01:47→20:52)
[2017-01-27 05:09] LABS: BASOPHILS # (AUTO) 0.1 X10^3/uL (0.0-0.1); BASOPHILS % (AUTO) 0.9 % (0.2-1.0); EOSINOPHILS # (AUTO) 0.4 x10^3/uL (0.0-0.2); EOSINOPHILS % (AUTO) 5.4 % (0.9-2.9); HEMATOCRIT 39.5 % (36.0-47.0); HEMOGLOBIN 12.9 g/dL (12.0-16.0); LYMPHOCYTES # (AUTO) 1.6 X10^3/uL (1.3-2.9); LYMPHOCYTES % (AUTO) 22.5 % (21.0-51.0); MEAN CORPUSCULAR HEMOGLOBIN 29.4 pg (27.0-34.0); MEAN CORPUSCULAR HGB CONC 32.7 g/dL (33.0-35.0); MEAN CORPUSCULAR VOLUME 89.9 fL (80.0-100.0); MEAN PLATELET VOLUME 8.1 fL (7.4-11.0); MONOCYTES # (AUTO) 0.5 x10^3/uL (0.3-0.8); MONOCYTES % (AUTO) 7.6 % (0.0-13.0); NEUTROPHILS # (AUTO) 4.4 x10^3/uL (2.2-4.8); NEUTROPHILS % (AUTO) 63.6 % (42.0-75.0); PLATELET COUNT 222 X10^3/uL (150.0-450.0); RED BLOOD COUNT 4.39 X10^6/uL (3.5-5.4); RED CELL DISTRIBUTION WIDTH 16.6 % (11.6-16.5); WHITE BLOOD COUNT 6.9 X10^3/uL (3.6-10.0)
[2017-01-27 05:13] LABS: B-TYPE NATRIURETIC PEPTIDE 78.1 pg/mL (0-79)
[2017-01-27 05:16] LABS: ALANINE AMINOTRANSFERASE 16 Units/L (12-78); ALKALINE PHOSPHATASE 101 Units/L (46-116); ASPARTATE AMINO TRANSFERASE 14 Units/L (15-37); BLOOD UREA NITROGEN 25 mg/dL (7-18); CALCIUM 8.6 mg/dL (8.5-10.1); CARBON DIOXIDE 33.9 mmol/L (21-32); CHLORIDE 98 mmol/L (98-107); COR CA(FOR HYPOALB) 9.4 mg/dL (8.5-10.1); CREATININE 1.12 mg/dL (0.55-1.02); GLUCOSE 88 mg/dL (65-99); SODIUM 136 mmol/L (136-145); TOTAL PROTEIN 7.8 g/dL (6.4-8.2); eGFR BLACK RACES > 60 (>60); eGFR NON BLACK RACES 50 (>60)
--- NOTE | 2017-01-27 06:33 | RAD ---
History: Shortness of breath. Study: Portable chest Comparison: Yesterday Findings: There is unchanged moderate cardiomegaly. There is vascular congestion improved from yeste rday's exam. There is subsegmental atelectasis in the right lower lobe also improved. There is no de finite pleural effusion. Impression: Slowly improving findings of congestive heart failure. Subsegmental atelectasis in the r ight lower lobe. Reported By:
[2017-01-27] MEDS: ALDACTONE TAB 25 MG PO SCH (08:36)
[2017-01-27] MEDS: NORCO 5/325 MG TAB PO SCH ×2 (08:36→20:22)
[2017-01-27] MEDS: COREG TAB 25 MG PO SCH ×2 (08:36→20:21)
[2017-01-27] MEDS: PROzac PO SCH (08:36)
[2017-01-27] MEDS: SYNTHROID 100 mcg TAB PO SCH (08:36)
[2017-01-27] MEDS: K-DUR TAB 20 MEQ PO SCH (08:37)
[2017-01-27] MEDS: LASIX PO SCH (08:37)
[2017-01-27] MEDS: ASPIRIN 81 MG CHEWTAB PO SCH (08:37)
[2017-01-27] MEDS: NYSTATIN POWDER TOP SCH ×2 (08:39→20:24)
[2017-01-27] MEDS: TRAMADOL HCL 200 MG PO SCH (08:39)
--- NOTE | 2017-01-27 09:24 | PCM.PROG ---
Progress Note - Progress Note for Day of Date: 01/27/17 - Subjective Subjective: WAS ADMITTED FROM THE ER ON 01/24/17 WITH PULMONARY EDEMA, CHF EXACERBATION, AND RESPIRATORY DISTRESS. SHE IS ALERT AND ORIENTED ON MORNING ROUNDS. SHE COMPLAINS OF SHORTNESS OF BREATH AND PRODUCTIVE COUGH. ON AUSCULTATION, LUNGS ARE NOTED WITH WHEEZING BILATERALLY. VITALS THIS AM ARE 97.5 -59-17-92%-127/73. CBC WNL. CMP WNL EXCEPT CARBON DIOXIDE 33.9, BUN 25, CREATININE 1.12, AST 14, ALBUMIN 3.0. INR 3.10, BNP 78.1. CHEST XRAY OBTAINED AND REPORTS SLOWLY IMPROVING CHF, SEBSEGMENTAL ATELECTASIS IN THE RIGHT LOWER LOBE. CARDIAC ENZYMES WNL. EKG REPORTED A-FIB. WE WILL CONTINUE WITH CURRENT PLAN OF CARE AND DIURESING PATIENT. WE WILL RECHECK LABS AND CHEST XRAY AND FOLLOW UP WITH PATIENT IN AM. - Past Medical Family Social History Past Med/Fam/Surg Hx: No changes since H&P Allergies: Allergies Sulfa (Sulfonamide Antibiotics) [SULFA] Allergy (Verified 01/24/17 12:12) - Review of Systems ROS: No change since H&P - Vital Signs and I&O's Vital Signs: Temperature 97.5 F Pulse Rate [Apical] 58 Pulse Rate 56 Respiratory Rate 16 Blood Pressure [Right Arm] 130/77 Blood Pressure [Left Arm] 121/65 O2 Sat by Pulse Oximetry 92 Intake and Output: Intake & Output 01/24/17 01/25/17 01/26/17 01/27/17 11:59 11:59 11:59 11:59 Intake Total 860 1160 970 Output Total 3500 4450 1825 Balance -0031 -5970 -855 - Physical Exam Oriented: Normal Eyes: Normal Ear: Normal Nose: Normal Throat: Normal Respiratory: Right, Left, Wheezes Cardiovascular: Normal : Normal Auscultation: Bowel Sounds: Normal Palpation: Normal Tenderness: Normal Skin: Normal Musculoskeletal: Normal Psychiatric: Normal Mood Description: Calm, Appropriate Affect: Normal Speech Pattern: Clear, Appropriate - Laboratory and Diagnostics Result Diagrams: 01/27/17 04:35 01/27/17 04:35 Labs: Laboratory WBC 6.9 X10^3/uL (3.6-10.0) 01/27/17 04:35 RBC 4.39 X10^6/uL (3.5-5.4) 01/27/17 04:35 Hgb 12.9 g/dL (12.0-16.0) 01/27/17 04:35 Hct 39.5 % (36.0-47.0) 01/27/17 04:35 MCV 89.9 fL (80.0-100.0) 01/27/17 04:35 MCH 29.4 pg (27.0-34.0) 01/27/17 04:35 MCHC 32.7 g/dL (33.0-35.0) L 01/27/17 04:35 RDW 16.6 % (11.6-16.5) H 01/27/17 04:35 Plt Count 222 X10^3/uL (150.0-450.0) 01/27/17 04:35 MPV 8.1 fL (7.4-11.0) 01/27/17 04:35 Neut % 63.6 % (42.0-75.0) 01/27/17 04:35 Lymph % 22.5 % (21.0-51.0) 01/27/17 04:35 Garza % 7.6 % (0.0-13.0) 01/27/17 04:35 Eos % 5.4 % (0.9-2.9) H 01/27/17 04:35 Baso % 0.9 % (0.2-1.0) 01/27/17 04:35 Neut # 4.4 x10^3/uL (2.2-4.8) 01/27/17 04:35 Lymph # 1.6 X10^3/uL (1.3-2.9) 01/27/17 04:35 Garza # 0.5 x10^3/uL (0.3-0.8) 01/27/17 04:35 Eos # 0.4 x10^3/uL (0.0-0.2) H 01/27/17 04:35 Baso # 0.1 X10^3/uL (0.0-0.1) 01/27/17 04:35 Absolute Nucleated RBC 0.1 /100WBC 01/27/17 04:35 INR Target Range - 01/27/17 04:35 INR 3.10 (0.8-1.3) H 01/27/17 04:35 PTT 36.5 SECONDS (22.9-36.5) 01/25/17 04:30 PTT Comment - 01/25/17 04:30 Sodium 136 mmol/L (136-145) 01/27/17 04:35 Corrected Sodium TNP 01/27/17 04:35 Potassium 4.0 mmol/L (3.5-5.1) 01/27/17 04:35 Chloride 98 mmol/L (98-107) 01/27/17 04:35 Carbon Dioxide 33.9 mmol/L (21-32) H 01/27/17 04:35 BUN 25 mg/dL (7-18) H 01/27/17 04:35 Creatinine 1.12 mg/dL (0.55-1.02) H 01/27/17 04:35 Est GFR (MDRD) Af Amer > 60 (>60) 01/27/17 04:35 Est GFR (MDRD) Non-Af 50 (>60) L 01/27/17 04:35 Glucose 88 mg/dL (65-99) 01/27/17 04:35 Calcium 8.6 mg/dL (8.5-10.1) 01/27/17 04:35 Corrected Calcium 9.4 mg/dL (8.5-10.1) 01/27/17 04:35 Magnesium 1.5 mg/dL (1.7-2.9) L 01/25/17 04:30 Total Bilirubin 0.60 mg/dL (0.2-1.0) 01/27/17 04:35 AST 14 Units/L (15-37) L 01/27/17 04:35 ALT 16 Units/L (12-78) 01/27/17 04:35 Alkaline Phosphatase 101 Units/L (46-116) 01/27/17 04:35 Creatine Kinase 90 Units/L (26-192) 01/24/17 13:05 CK-MB (CK-2) 1.4 ng/mL (0-4.0) 01/24/17 13:05 CK/CKMB % Calc 1.6 % (<4) 01/24/17 13:05 Troponin I < 0.02 ng/mL (0-1.5) 01/24/17 13:05 B-Natriuretic Peptide 78.1 pg/mL (0-79) 01/27/17 04:35 Total Protein 7.8 g/dL (6.4-8.2) 01/27/17 04:35 Albumin 3.0 g/dL (3.4-5.0) L 01/27/17 04:35 Globulin 4.8 g/dL (2.5-4.5) H 01/27/17 04:35 Albumin/Globulin Ratio 0.6 Ratio (1.1-2.1) L 01/27/17 04:35 Triglycerides 54 mg/dL (0-150) 01/25/17 04:30 Cholesterol 89 mg/dL (0-200) 01/25/17 04:30 LDL Cholesterol, Calc 28 mg/dL (0-100) 01/25/17 04:30 HDL Cholesterol 50 mg/dL (40-60) 01/25/17 04:30 Cholesterol/HDL Ratio 1.8 (0.0-5.0) 01/25/17 04:30 Specimen Type Catherized urine 01/24/17 11:48 Urine Color Yellow (YELLOW) 01/24/17 11:48 Urine Appearance Hazy (CLEAR) 01/24/17 11:48 Urine pH 5.0 (5.0 - 8.0) 01/24/17 11:48 Ur Specific [place] 1.020 (1.000-1.030) 01/24/17 11:48 Urine Protein 1+ (NEGATIVE) 01/24/17 11:48 Urine Glucose (UA) Negative (NEGATIVE) 01/24/17 11:48 Urine Ketones Negative (NEGATIVE) 01/24/17 11:48 Urine Occult Blood 2+ (NEGATIVE) 01/24/17 11:48 Urine Nitrite Negative (NEGATIVE) 01/24/17 11:48 Urine Bilirubin Negative (NEGATIVE) 01/24/17 11:48 Urine Urobilinogen Normal (NORMAL) 01/24/17 11:48 Ur Leukocyte Esterase 1+ (NEGATIVE) 01/24/17 11:48 Urine RBC 3-5 /HPF (NEGATIVE) 01/24/17 11:48 Urine WBC 3-5 /HPF (NEGATIVE) 01/24/17 11:48 Ur Squamous Epith Cells Negative /HPF (NEGATIVE) 01/24/17 11:48 Urine Bacteria Trace /HPF (NEGATIVE) 01/24/17 11:48 Ur Culture Indicated? No/not indicated 01/24/17 11:48 - Plan (1) Pulmonary edema Status: Acute Qualifiers: Chronicity: acute Qualified Code(s): J81.0 - Acute pulmonary edema Plan: Lasix IV, CONTINUE TO MONITOR (2) CHF (congestive heart failure) Status: Acute Qualifiers: Congestive heart failure type: unspecified congestive heart failure type Congestive heart failure chronicity: unspecified congestive heart failure chronicity Qualified Code(s): I50.9 - Heart failure, unspecified Plan: LASIX IV, CONTINUE COREG AND ALDACTONE, CHECK CHEST XRAY, CONTINUE TO MONITOR (3) Respiratory distress Status: Acute Plan: SUPPLEMENTAL OXYGEN, CHECK ABG, CONTINUE TO MONITOR (4) Atrial fibrillation with controlled ventricular response Status: Acute Plan: CONTINUE COUMADIN, CONTINUE TO MONITOR (5) Hypothyroidism Status: Chronic Qualifiers: Hypothyroidism type: acquired Qualified Code(s): E03.9 - Hypothyroidism, unspecified Plan: CONTINUE SYNTHROID, CONTINUE TO MONITOR (6) Depression Status: Chronic Qualifiers: Depression Type: major depressive disorder Major depression recurrence: recurrent Active/Remission status: remission status unspecified Major depression episode severity: M Psychotic features: P Trimester: T Qualified Code(s): F33.9 - Major depressive disorder, recurrent, unspecified Plan: CONTINUE PROZAC, CONTINUE TO MONITOR (7) Dyslipidemia Status: Chronic Plan: CONTINUE LIPITOR, CONTINUE TO MONITOR (8) Hypertension Status: Chronic Qualifiers: Hypertension type: essential hypertension Qualified Code(s): I10 - Essential (primary) hypertension Plan: CONTINUE COREG, CONTINUE TO MONITOR
[2017-01-27] MEDS: PULMICORT NEB TX 0.5 MG NEB SCH ×2 (09:53→20:52)
[2017-01-27 10:23] LABS: ABG ALLEN TEST POS; ABG HCO3 36.8 mmol/L (22-26)
[2017-01-27] MEDS: MORPHINE SULFATE INJ 2 MG IVP PRN (13:09)
[2017-01-27] MEDS: LIPITOR TAB 20 MG PO SCH (20:22)
[2017-01-27] MEDS: COUMADIN TAB 6 MG PO SCH (20:22)
[2017-01-27] MEDS: PATIENT'S HOME MEDICATION (Mirabegron [Myrbetriq] 25 MG) PO SCH (20:27)
[2017-01-28] MEDS: DUONEB 0.5 MG/3 MG NEB SCH ×6 (00:13→20:33)
[2017-01-28 04:23] LABS: BILIRUBIN,URINE NEGATIVE (NEGATIVE); BLOOD/HEMOGLOBIN,URINE 4+ (NEGATIVE); GLUCOSE, URINE NEGATIVE (NEGATIVE); KETONES,URINE NEGATIVE (NEGATIVE); LEUKOCYTE ESTERASE ,URINE 3+ (NEGATIVE); NITRITES,URINE NEGATIVE (NEGATIVE); PROTEIN,URINE 3+ (NEGATIVE); UROBILINOGEN,URINE 1+ (NORMAL)
[2017-01-28 04:26] LABS: APPEARANCE,URINE CLOUDY (CLEAR); COLOR,URINE YELLOW (YELLOW)
[2017-01-28 04:28] LABS: BACTERIA,URINE 2+ /HPF (NEGATIVE); RBC,URINE TNTC /HPF (NEGATIVE); SQUAMOUS EPITHELIAL CELL,UR RARE /HPF (NEGATIVE)
[2017-01-28 05:20] LABS: BASOPHILS # (AUTO) 0.1 X10^3/uL (0.0-0.1); BASOPHILS % (AUTO) 0.6 % (0.2-1.0); EOSINOPHILS # (AUTO) 0.3 x10^3/uL (0.0-0.2); EOSINOPHILS % (AUTO) 3.5 % (0.9-2.9); LYMPHOCYTES # (AUTO) 1.1 X10^3/uL (1.3-2.9); LYMPHOCYTES % (AUTO) 13.2 % (21.0-51.0); MEAN CORPUSCULAR HEMOGLOBIN 29.4 pg (27.0-34.0); MEAN CORPUSCULAR HGB CONC 33.2 g/dL (33.0-35.0); MEAN CORPUSCULAR VOLUME 88.6 fL (80.0-100.0); MEAN PLATELET VOLUME 8.3 fL (7.4-11.0); MONOCYTES # (AUTO) 0.6 x10^3/uL (0.3-0.8); MONOCYTES % (AUTO) 7.8 % (0.0-13.0); NEUTROPHILS % (AUTO) 74.9 % (42.0-75.0); PLATELET COUNT 229 X10^3/uL (150.0-450.0); RED BLOOD COUNT 4.41 X10^6/uL (3.5-5.4); RED CELL DISTRIBUTION WIDTH 16.9 % (11.6-16.5)
[2017-01-28 05:33] LABS: ALANINE AMINOTRANSFERASE 17 Units/L (12-78); ALBUMIN 3.1 g/dL (3.4-5.0); ALKALINE PHOSPHATASE 115 Units/L (46-116); ASPARTATE AMINO TRANSFERASE 16 Units/L (15-37); BLOOD UREA NITROGEN 22 mg/dL (7-18); CALCIUM 8.8 mg/dL (8.5-10.1); CARBON DIOXIDE 33.3 mmol/L (21-32); CHLORIDE 97 mmol/L (98-107); COR CA(FOR HYPOALB) 9.5 mg/dL (8.5-10.1); CREATININE 1.08 mg/dL (0.55-1.02); GLUCOSE 100 mg/dL (65-99); SODIUM 134 mmol/L (136-145); TOTAL PROTEIN 8.1 g/dL (6.4-8.2); eGFR BLACK RACES > 60 (>60); eGFR NON BLACK RACES 52 (>60)
--- NOTE | 2017-01-28 06:43 | RAD ---
The AP chest Indication: Shortness of breath. Comparison: 01/27/2017 Findings: Heart size remains enlarged. Pulmonary vascular congestion similar to prior examinations. Opacity within the right lung base again may represent subsegmental atelectasis however infiltrate i s also a consideration. No large effusion or pneumothorax. No acute osseous abnormality. Impression: Stable examination demonstrating cardiomegaly, chronic pulmonary vascular congestion and stable opacity within the right lung base potentially representing infiltrate or passive subsegment al atelectasis. Reported By:
[2017-01-28] MEDS: ASPIRIN 81 MG CHEWTAB PO SCH (08:08)
[2017-01-28] MEDS: NORCO 5/325 MG TAB PO SCH ×2 (08:08→20:36)
[2017-01-28] MEDS: COREG TAB 25 MG PO SCH ×2 (08:08→20:32)
[2017-01-28] MEDS: LASIX PO SCH (08:08)
[2017-01-28] MEDS: ALDACTONE TAB 25 MG PO SCH (08:08)
[2017-01-28] MEDS: K-DUR TAB 20 MEQ PO SCH (08:09)
[2017-01-28] MEDS: SYNTHROID 100 mcg TAB PO SCH (08:09)
[2017-01-28] MEDS: TRAMADOL HCL 200 MG PO SCH (08:09)
[2017-01-28] MEDS: NYSTATIN POWDER TOP SCH ×2 (08:09→20:36)
[2017-01-28] MEDS: PROzac PO SCH (08:09)
[2017-01-28] MEDS: PULMICORT NEB TX 0.5 MG NEB SCH ×2 (08:27→20:33)
[2017-01-28] MEDS ORDERED: ROCEPHIN VIAL 1 GM ONE (09:20)
[2017-01-28] MEDS ORDERED: NS 50 ML IV + SPIKE MINIBAG* 50 ML IV ONE (09:20)
[2017-01-28] MEDS ORDERED: NS 250 ML IV 250 ML IV ONE (09:22)
[2017-01-28] MEDS: ROCEPHIN VIAL 1 GM 1 GM in NS 50 ML IV + SPIKE MINIBAG* 50 ML IV SCH (09:27)
--- NOTE | 2017-01-28 09:49 | PCM.PROG ---
Progress Note - Progress Note for Day of Date: 01/28/17 - Subjective Subjective: WAS ADMITTED FROM THE ER ON 01/24/17 WITH PULMONARY EDEMA, CHF EXACERBATION, AND RESPIRATORY DISTRESS. SHE IS ALERT AND ORIENTED, SITTING UP IN BED ON MORNING ROUNDS. SHE COMPLAINS OF SHORTNESS OF BREATH AND PRODUCTIVE COUGH. ON AUSCULTATION, LUNGS ARE NOTED WITH WHEEZING BILATERALLY. VITALS THIS AM ARE 98.2-91-94-89-127/62. CBC WNL. CMP WNL EXCEPT SODIUM 134, CHLORIDE 97, CARBON DIOXIDE 33.3, BUN 22, CREATININE 1.08, GLUCOSE 100, ALBUMIN 3.1. INR 2.59. URINALYSIS REPORTS WBC TNTC, RBC TNTC, LEUKOCYTES 3+, BACTERIA 2+ . CHEST XRAY OBTAINED AND REPORTS STABLE EXAM DEMONSTRATING CARDIOMEGALY, CHRONIC PULMONARY VASCULAR CONGESTION AND STABLE OPACITY WITHIN THE RIGHT LUNG BASE POTENTIALLY REPRESENTING INFILTRATE OR PASSIVE SUBSEGMENTAL ATELECTASIS. WE WILL START PATIENT ON ROCEPHIN 1GM IV DAILY AND CONTINUE WITH CURRENT PLAN OF CARE. WE WILL RECHECK LABS AND CHEST XRAY AND FOLLOW UP WITH PATIENT IN AM. - Past Medical Family Social History Past Med/Fam/Surg Hx: No changes since H&P Allergies: Allergies Sulfa (Sulfonamide Antibiotics) [SULFA] Allergy (Verified 01/24/17 12:12) - Review of Systems ROS: No change since H&P - Vital Signs and I&O's Vital Signs: Temperature 98.3 F Pulse Rate [Apical] 66 Pulse Rate 67 Respiratory Rate 19 Blood Pressure [Right Arm] 130/77 Blood Pressure [Left Arm] 115/62 O2 Sat by Pulse Oximetry 89 Intake and Output: Intake & Output 01/25/17 01/26/17 01/27/17 01/28/17 11:59 11:59 11:59 11:59 Intake Total 860 0316 396 7517 Output Total 3500 4450 7380 9599 Balance -7382 -1410 -855 -1390 - Physical Exam Oriented: Normal Eyes: Normal Ear: Normal Nose: Normal Throat: Normal Respiratory: Right, Left, Wheezes Cardiovascular: Normal : Normal Auscultation: Bowel Sounds: Normal Palpation: Normal Tenderness: Normal Skin: Normal Musculoskeletal: Normal Psychiatric: Normal Mood Description: Calm, Appropriate Affect: Normal Speech Pattern: Clear, Appropriate - Laboratory and Diagnostics Result Diagrams: 01/28/17 04:50 01/28/17 04:50 Labs: Laboratory WBC 8.0 X10^3/uL (3.6-10.0) 01/28/17 04:50 RBC 4.41 X10^6/uL (3.5-5.4) 01/28/17 04:50 Hgb 13.0 g/dL (12.0-16.0) 01/28/17 04:50 Hct 39.0 % (36.0-47.0) 01/28/17 04:50 MCV 88.6 fL (80.0-100.0) 01/28/17 04:50 MCH 29.4 pg (27.0-34.0) 01/28/17 04:50 MCHC 33.2 g/dL (33.0-35.0) 01/28/17 04:50 RDW 16.9 % (11.6-16.5) H 01/28/17 04:50 Plt Count 229 X10^3/uL (150.0-450.0) 01/28/17 04:50 MPV 8.3 fL (7.4-11.0) 01/28/17 04:50 Neut % 74.9 % (42.0-75.0) 01/28/17 04:50 Lymph % 13.2 % (21.0-51.0) L 01/28/17 04:50 [place] % 7.8 % (0.0-13.0) 01/28/17 04:50 Eos % 3.5 % (0.9-2.9) H 01/28/17 04:50 Baso % 0.6 % (0.2-1.0) 01/28/17 04:50 Neut # 6.0 x10^3/uL (2.2-4.8) H 01/28/17 04:50 Lymph # 1.1 X10^3/uL (1.3-2.9) L 01/28/17 04:50 Tate # 0.6 x10^3/uL (0.3-0.8) 01/28/17 04:50 Eos # 0.3 x10^3/uL (0.0-0.2) H 01/28/17 04:50 Baso # 0.1 X10^3/uL (0.0-0.1) 01/28/17 04:50 Absolute Nucleated RBC 0.0 /100WBC 01/28/17 04:50 INR Target Range - 01/28/17 04:50 INR 2.59 (0.8-1.3) H 01/28/17 04:50 PTT 36.5 SECONDS (22.9-36.5) 01/25/17 04:30 PTT Comment - 01/25/17 04:30 Sample Site L rad 01/27/17 10:12 ABG pH 7.450 (7.35-7.45) 01/27/17 10:12 ABG pCO2 53.0 mmHg (35.0-45.0) H* 01/27/17 10:12 ABG pO2 54.0 mmHg (80.0-100.0) L 01/27/17 10:12 ABG HCO3 36.8 mmol/L (22-26) H* 01/27/17 10:12 ABG O2 Saturation 89.0 % (90-100) L 01/27/17 10:12 ABG Base Excess 11.0 mmol/L (-2.0-2.0) H 01/27/17 10:12 Tra Test Pos 01/27/17 10:12 A-a Gradient 136.0 mmHg 01/27/17 10:12 FiO2 36.000 01/27/17 10:12 Blood Gas Comments Lilliam well, afh 01/27/17 10:12 Sodium 134 mmol/L (136-145) L 01/28/17 04:50 Corrected Sodium TNP 01/28/17 04:50 Potassium 4.1 mmol/L (3.5-5.1) 01/28/17 04:50 Chloride 97 mmol/L (98-107) L 01/28/17 04:50 Carbon Dioxide 33.3 mmol/L (21-32) H 01/28/17 04:50 BUN 22 mg/dL (7-18) H 01/28/17 04:50 Creatinine 1.08 mg/dL (0.55-1.02) H 01/28/17 04:50 Est GFR (MDRD) Af Amer > 60 (>60) 01/28/17 04:50 Est GFR (MDRD) Non-Af 52 (>60) L 01/28/17 04:50 Glucose 100 mg/dL (65-99) H 01/28/17 04:50 Calcium 8.8 mg/dL (8.5-10.1) 01/28/17 04:50 Corrected Calcium 9.5 mg/dL (8.5-10.1) 01/28/17 04:50 Magnesium 1.5 mg/dL (1.7-2.9) L 01/25/17 04:30 Total Bilirubin 0.80 mg/dL (0.2-1.0) 01/28/17 04:50 AST 16 Units/L (15-37) 01/28/17 04:50 ALT 17 Units/L (12-78) 01/28/17 04:50 Alkaline Phosphatase 115 Units/L (46-116) 01/28/17 04:50 Creatine Kinase 90 Units/L (26-192) 01/24/17 13:05 CK-MB (CK-2) 1.4 ng/mL (0-4.0) 01/24/17 13:05 CK/CKMB % Calc 1.6 % (<4) 01/24/17 13:05 Troponin I < 0.02 ng/mL (0-1.5) 01/24/17 13:05 B-Natriuretic Peptide 78.1 pg/mL (0-79) 01/27/17 04:35 Total Protein 8.1 g/dL (6.4-8.2) 01/28/17 04:50 Albumin 3.1 g/dL (3.4-5.0) L 01/28/17 04:50 Globulin 5.0 g/dL (2.5-4.5) H 01/28/17 04:50 Albumin/Globulin Ratio 0.6 Ratio (1.1-2.1) L 01/28/17 04:50 Triglycerides 54 mg/dL (0-150) 01/25/17 04:30 Cholesterol 89 mg/dL (0-200) 01/25/17 04:30 LDL Cholesterol, Calc 28 mg/dL (0-100) 01/25/17 04:30 HDL Cholesterol 50 mg/dL (40-60) 01/25/17 04:30 Cholesterol/HDL Ratio 1.8 (0.0-5.0) 01/25/17 04:30 Specimen Type Catherized urine 01/28/17 04:16 Urine Color Yellow (YELLOW) 01/28/17 04:16 Urine Appearance Cloudy (CLEAR) 01/28/17 04:16 Urine pH 8.0 (5.0 - 8.0) 01/28/17 04:16 Ur Specific [place] 1.015 (1.000-1.030) 01/28/17 04:16 Urine Protein 3+ (NEGATIVE) 01/28/17 04:16 Urine Glucose (UA) Negative (NEGATIVE) 01/28/17 04:16 Urine Ketones Negative (NEGATIVE) 01/28/17 04:16 Urine Occult Blood 4+ (NEGATIVE) 01/28/17 04:16 Urine Nitrite Negative (NEGATIVE) 01/28/17 04:16 Urine Bilirubin Negative (NEGATIVE) 01/28/17 04:16 Urine Urobilinogen 1+ (NORMAL) 01/28/17 04:16 Ur Leukocyte Esterase 3+ (NEGATIVE) 01/28/17 04:16 Urine RBC Tntc /HPF (NEGATIVE) 01/28/17 04:16 Urine WBC Tntc /HPF (NEGATIVE) 01/28/17 04:16 Ur Squamous Epith Cells Rare /HPF (NEGATIVE) 01/28/17 04:16 Urine Bacteria 2+ /HPF (NEGATIVE) 01/28/17 04:16 Ur Culture Indicated? Yes/culture set up 01/28/17 04:16 - Plan (1) Pulmonary edema Status: Acute Qualifiers: Chronicity: acute Qualified Code(s): J81.0 - Acute pulmonary edema Plan: Lasix IV, CONTINUE TO MONITOR (2) CHF (congestive heart failure) Status: Acute Qualifiers: Congestive heart failure type: unspecified congestive heart failure type Congestive heart failure chronicity: unspecified congestive heart failure chronicity Qualified Code(s): I50.9 - Heart failure, unspecified Plan: LASIX IV, CONTINUE COREG AND ALDACTONE, CHECK CHEST XRAY, CONTINUE TO MONITOR (3) Respiratory distress Status: Acute Plan: SUPPLEMENTAL OXYGEN, CHECK ABG, CONTINUE TO MONITOR (4) Urinary tract infection Status: Acute Qualifiers: Urinary tract infection type: acute cystitis Hematuria presence: without hematuria Indwelling urinary catheter type: I Encounter type: E Qualified Code(s): N30.00 - Acute cystitis without hematuria Plan: ROCEPHIN 1 GM IV DAILY, CONTINUE TO MONITOR (5) Atrial fibrillation with controlled ventricular response Status: Acute Plan: CONTINUE COUMADIN, CONTINUE TO MONITOR (6) Hypothyroidism Status: Chronic Qualifiers: Hypothyroidism type: acquired Qualified Code(s): E03.9 - Hypothyroidism, unspecified Plan: CONTINUE SYNTHROID, CONTINUE TO MONITOR (7) Depression Status: Chronic Qualifiers: Depression Type: major depressive disorder Major depression recurrence: recurrent Active/Remission status: remission status unspecified Major depression episode severity: M Psychotic features: P Trimester: T Qualified Code(s): F33.9 - Major depressive disorder, recurrent, unspecified Plan: CONTINUE PROZAC, CONTINUE TO MONITOR (8) Dyslipidemia Status: Chronic Plan: CONTINUE LIPITOR, CONTINUE TO MONITOR (9) Hypertension Status: Chronic Qualifiers: Hypertension type: essential hypertension Qualified Code(s): I10 - Essential (primary) hypertension Plan: CONTINUE COREG, CONTINUE TO MONITOR (10) Urinary tract infection Status: Acute Qualifiers: Urinary tract infection type: U Hematuria presence: H Indwelling urinary catheter type: I Encounter type: E
[2017-01-28] MEDS: MORPHINE SULFATE INJ 2 MG IVP PRN (20:02)
[2017-01-28] MEDS: COUMADIN TAB 6 MG PO SCH (20:35)
[2017-01-28] MEDS: LIPITOR TAB 20 MG PO SCH (20:36)
[2017-01-28] MEDS: PATIENT'S HOME MEDICATION (Mirabegron [Myrbetriq] 25 MG) PO SCH (20:37)
[2017-01-29] MEDS: DUONEB 0.5 MG/3 MG NEB SCH ×6 (00:39→21:12)
[2017-01-29 05:50] LABS: BASOPHILS % (AUTO) 0.5 % (0.2-1.0); EOSINOPHILS # (AUTO) 0.3 x10^3/uL (0.0-0.2); EOSINOPHILS % (AUTO) 3.3 % (0.9-2.9); HEMATOCRIT 39.4 % (36.0-47.0); HEMOGLOBIN 13.2 g/dL (12.0-16.0); LYMPHOCYTES # (AUTO) 1.2 X10^3/uL (1.3-2.9); LYMPHOCYTES % (AUTO) 15.2 % (21.0-51.0); MEAN CORPUSCULAR HEMOGLOBIN 29.7 pg (27.0-34.0); MEAN CORPUSCULAR HGB CONC 33.5 g/dL (33.0-35.0); MEAN CORPUSCULAR VOLUME 88.5 fL (80.0-100.0); MEAN PLATELET VOLUME 8.3 fL (7.4-11.0); MONOCYTES # (AUTO) 0.8 x10^3/uL (0.3-0.8); MONOCYTES % (AUTO) 10.3 % (0.0-13.0); NEUTROPHILS # (AUTO) 5.5 x10^3/uL (2.2-4.8); NEUTROPHILS % (AUTO) 70.7 % (42.0-75.0); PLATELET COUNT 217 X10^3/uL (150.0-450.0); RED BLOOD COUNT 4.45 X10^6/uL (3.5-5.4); RED CELL DISTRIBUTION WIDTH 16.1 % (11.6-16.5); WHITE BLOOD COUNT 7.7 X10^3/uL (3.6-10.0)
[2017-01-29 05:57] LABS: ALANINE AMINOTRANSFERASE 17 Units/L (12-78); ALKALINE PHOSPHATASE 106 Units/L (46-116); ASPARTATE AMINO TRANSFERASE 17 Units/L (15-37); BLOOD UREA NITROGEN 20 mg/dL (7-18); CALCIUM 8.7 mg/dL (8.5-10.1); CARBON DIOXIDE 35.2 mmol/L (21-32); CHLORIDE 94 mmol/L (98-107); COR CA(FOR HYPOALB) 9.5 mg/dL (8.5-10.1); GLUCOSE 95 mg/dL (65-99); SODIUM 132 mmol/L (136-145); TOTAL PROTEIN 8.2 g/dL (6.4-8.2); eGFR BLACK RACES > 60 (>60); eGFR NON BLACK RACES 51 (>60)
[2017-01-29 08:13] LABS: ABG BASE EXCESS 10.2 mmol/L (-2.0-2.0)
[2017-01-29 08:20] LABS: ABG ALLEN TEST POS; ABG HCO3 35.6 mmol/L (22-26)
[2017-01-29] MEDS: ASPIRIN 81 MG CHEWTAB PO SCH (08:29)
[2017-01-29] MEDS: COREG TAB 25 MG PO SCH ×2 (08:29→20:30)
[2017-01-29] MEDS: K-DUR TAB 20 MEQ PO SCH (08:29)
[2017-01-29] MEDS: LASIX PO SCH (08:29)
[2017-01-29] MEDS: ALDACTONE TAB 25 MG PO SCH (08:29)
[2017-01-29] MEDS: NORCO 5/325 MG TAB PO SCH ×2 (08:30→20:30)
[2017-01-29] MEDS: ROCEPHIN VIAL 1 GM 1 GM in NS 50 ML IV + SPIKE MINIBAG* 50 ML IV SCH (08:30)
[2017-01-29] MEDS: SYNTHROID 100 mcg TAB PO SCH (08:30)
[2017-01-29] MEDS: TRAMADOL HCL 200 MG PO SCH (08:30)
[2017-01-29] MEDS: PROzac PO SCH (08:30)
[2017-01-29] MEDS: NYSTATIN POWDER TOP SCH ×2 (08:30→20:31)
[2017-01-29] MEDS: PULMICORT NEB TX 0.5 MG NEB SCH ×2 (08:51→21:12)
--- NOTE | 2017-01-29 09:01 | RAD ---
HISTORY: Shortness of breath Study: Single view of the chest Comparison: January 28, 2017 Findings: The patient is rotated. The cardiac silhouette is enlarged with central pulmonary vascular congesti on and pulmonary edema similar to prior exam. Right lower lobe infiltrate again cannot be excluded. IMPRESSION: 1. Cardiomegaly with pulmonary vascular congestion and edema. Right lower lobe infiltrate cannot be excluded. No significant interval improvement is appreciated since prior study. Reported By:
[2017-01-29] MEDS: LASIX IVP SCH ×2 (11:21→20:31)
--- NOTE | 2017-01-29 12:16 | PCM.PROG ---
Progress Note - Progress Note for Day of Date: 01/29/17 - Subjective Subjective: WAS ADMITTED FROM THE ER ON 01/24/17 WITH PULMONARY EDEMA, CHF EXACERBATION, AND RESPIRATORY DISTRESS. SHE IS ALERT AND ORIENTED, SITTING UP IN BED ON MORNING ROUNDS. SHE CONTINUES WITH COMPLAINTS OF SHORTNESS OF BREATH. ON AUSCULTATION, LUNGS CONTINUE WITH WHEEZING BILATERALLY. VITALS THIS AM ARE 97.9-64-22-86%-127/64. SHE IS NOTED WEARING NASAL CANNULA AT 2 LPM CBC WNL. CBC WNL. CMP WNL EXCEPT SODIUM 132, CHLORIDE 94, CARBON DIOXIDE 35.2, BUN 20, CREATININE 1.10, ALBUMIN 3.0. INR 2.87. ABG REPORTS PH 7.46, PC02 50, HC03 35.6. CHEST XRAY OBTAINED AND REPORTS CARDIOMEGALY WITH PULMONARY VASCULAR CONGESTION AND EDEMA. RIGHT LOWER LOBE INFILTRATED CANNOT BE EXCLUEDE. NO SIGNIFICANT INTERVAL IMPROVEMENT IS APPRECIATED SINCE PRIOR STUDY. WE WILL START PATIENT ON LASIX 40MG IV BID X 2 DOSES AND CONTINUE WITH CURRENT PLAN OF CARE. WE WILL RECHECK LABS AND CHEST XRAY AND FOLLOW UP WITH PATIENT IN AM. - Past Medical Family Social History Past Med/Fam/Surg Hx: No changes since H&P Allergies: Allergies Sulfa (Sulfonamide Antibiotics) [SULFA] Allergy (Verified 01/24/17 12:12) - Review of Systems ROS: No change since H&P - Vital Signs and I&O's Vital Signs: Temperature 98.1 F Pulse Rate [Apical] 69 Pulse Rate 76 Respiratory Rate 19 Blood Pressure [Right Arm] 130/77 Blood Pressure [Left Arm] 108/59 O2 Sat by Pulse Oximetry 87 Intake and Output: Intake & Output 01/27/17 01/28/17 01/29/17 01/30/17 11:59 11:59 11:59 11:59 Intake Total 970 1860 70 Output Total 1821 7800 0520 Balance -859 -4760 -4751 - Physical Exam Oriented: Normal Eyes: Normal Ear: Normal Nose: Normal Throat: Normal Respiratory: Right, Left, Wheezes Cardiovascular: Normal : Normal Auscultation: Bowel Sounds: Normal Palpation: Normal Tenderness: Normal Skin: Normal Musculoskeletal: Normal Psychiatric: Normal Mood Description: Calm, Appropriate Affect: Normal Speech Pattern: Clear, Appropriate - Laboratory and Diagnostics Result Diagrams: 01/29/17 04:45 01/29/17 04:45 Labs: 01/28/17 04:16 Urine,Catheterized Urine Culture - Preliminary Laboratory WBC 7.7 X10^3/uL (3.6-10.0) 01/29/17 04:45 RBC 4.45 X10^6/uL (3.5-5.4) 01/29/17 04:45 Hgb 13.2 g/dL (12.0-16.0) 01/29/17 04:45 Hct 39.4 % (36.0-47.0) 01/29/17 04:45 MCV 88.5 fL (80.0-100.0) 01/29/17 04:45 MCH 29.7 pg (27.0-34.0) 01/29/17 04:45 MCHC 33.5 g/dL (33.0-35.0) 01/29/17 04:45 RDW 16.1 % (11.6-16.5) 01/29/17 04:45 Plt Count 217 X10^3/uL (150.0-450.0) 01/29/17 04:45 MPV 8.3 fL (7.4-11.0) 01/29/17 04:45 Neut % 70.7 % (42.0-75.0) 01/29/17 04:45 Lymph % 15.2 % (21.0-51.0) L 01/29/17 04:45 [place] % 10.3 % (0.0-13.0) 01/29/17 04:45 Eos % 3.3 % (0.9-2.9) H 01/29/17 04:45 Baso % 0.5 % (0.2-1.0) 01/29/17 04:45 Neut # 5.5 x10^3/uL (2.2-4.8) H 01/29/17 04:45 Lymph # 1.2 X10^3/uL (1.3-2.9) L 01/29/17 04:45 [place] # 0.8 x10^3/uL (0.3-0.8) 01/29/17 04:45 Eos # 0.3 x10^3/uL (0.0-0.2) H 01/29/17 04:45 Baso # 0.0 X10^3/uL (0.0-0.1) 01/29/17 04:45 Absolute Nucleated RBC 0.1 /100WBC 01/29/17 04:45 INR Target Range - 01/29/17 04:45 INR 2.87 (0.8-1.3) H 01/29/17 04:45 PTT 36.5 SECONDS (22.9-36.5) 01/25/17 04:30 PTT Comment - 01/25/17 04:30 Sample Site Lra 01/29/17 08:15 ABG pH 7.460 (7.35-7.45) H 01/29/17 08:15 ABG pCO2 50.0 mmHg (35.0-45.0) H 01/29/17 08:15 ABG pO2 56.0 mmHg (80.0-100.0) L 01/29/17 08:15 ABG HCO3 35.6 mmol/L (22-26) H* 01/29/17 08:15 ABG O2 Saturation 90.0 % (90-100) 01/29/17 08:15 ABG Base Excess 10.2 mmol/L (-2.0-2.0) H 01/29/17 08:15 Tra Test Pos 01/29/17 08:15 A-a Gradient 138.0 mmHg 01/29/17 08:15 FiO2 36.000 01/29/17 08:15 Blood Gas Comments Lilliam well cs 01/29/17 08:15 Sodium 132 mmol/L (136-145) L 01/29/17 04:45 Corrected Sodium TNP 01/29/17 04:45 Potassium 4.2 mmol/L (3.5-5.1) 01/29/17 04:45 Chloride 94 mmol/L (98-107) L 01/29/17 04:45 Carbon Dioxide 35.2 mmol/L (21-32) H 01/29/17 04:45 BUN 20 mg/dL (7-18) H 01/29/17 04:45 Creatinine 1.10 mg/dL (0.55-1.02) H 01/29/17 04:45 Est GFR (MDRD) Af Amer > 60 (>60) 01/29/17 04:45 Est GFR (MDRD) Non-Af 51 (>60) L 01/29/17 04:45 Glucose 95 mg/dL (65-99) 01/29/17 04:45 Calcium 8.7 mg/dL (8.5-10.1) 01/29/17 04:45 Corrected Calcium 9.5 mg/dL (8.5-10.1) 01/29/17 04:45 Magnesium 1.5 mg/dL (1.7-2.9) L 01/25/17 04:30 Total Bilirubin 1.00 mg/dL (0.2-1.0) 01/29/17 04:45 AST 17 Units/L (15-37) 01/29/17 04:45 ALT 17 Units/L (12-78) 01/29/17 04:45 Alkaline Phosphatase 106 Units/L (46-116) 01/29/17 04:45 Creatine Kinase 90 Units/L (26-192) 01/24/17 13:05 CK-MB (CK-2) 1.4 ng/mL (0-4.0) 01/24/17 13:05 CK/CKMB % Calc 1.6 % (<4) 01/24/17 13:05 Troponin I < 0.02 ng/mL (0-1.5) 01/24/17 13:05 B-Natriuretic Peptide 78.1 pg/mL (0-79) 01/27/17 04:35 Total Protein 8.2 g/dL (6.4-8.2) 01/29/17 04:45 Albumin 3.0 g/dL (3.4-5.0) L 01/29/17 04:45 Globulin 5.2 g/dL (2.5-4.5) H 01/29/17 04:45 Albumin/Globulin Ratio 0.6 Ratio (1.1-2.1) L 01/29/17 04:45 Triglycerides 54 mg/dL (0-150) 01/25/17 04:30 Cholesterol 89 mg/dL (0-200) 01/25/17 04:30 LDL Cholesterol, Calc 28 mg/dL (0-100) 01/25/17 04:30 HDL Cholesterol 50 mg/dL (40-60) 01/25/17 04:30 Cholesterol/HDL Ratio 1.8 (0.0-5.0) 01/25/17 04:30 Specimen Type Catherized urine 01/28/17 04:16 Urine Color Yellow (YELLOW) 01/28/17 04:16 Urine Appearance Cloudy (CLEAR) 01/28/17 04:16 Urine pH 8.0 (5.0 - 8.0) 01/28/17 04:16 Ur Specific [place] 1.015 (1.000-1.030) 01/28/17 04:16 Urine Protein 3+ (NEGATIVE) 01/28/17 04:16 Urine Glucose (UA) Negative (NEGATIVE) 01/28/17 04:16 Urine Ketones Negative (NEGATIVE) 01/28/17 04:16 Urine Occult Blood 4+ (NEGATIVE) 01/28/17 04:16 Urine Nitrite Negative (NEGATIVE) 01/28/17 04:16 Urine Bilirubin Negative (NEGATIVE) 01/28/17 04:16 Urine Urobilinogen 1+ (NORMAL) 01/28/17 04:16 Ur Leukocyte Esterase 3+ (NEGATIVE) 01/28/17 04:16 Urine RBC Tntc /HPF (NEGATIVE) 01/28/17 04:16 Urine WBC Tntc /HPF (NEGATIVE) 01/28/17 04:16 Ur Squamous Epith Cells Rare /HPF (NEGATIVE) 01/28/17 04:16 Urine Bacteria 2+ /HPF (NEGATIVE) 01/28/17 04:16 Ur Culture Indicated? Yes/culture set up 01/28/17 04:16 - Plan (1) Pulmonary edema Status: Acute Qualifiers: Chronicity: acute Qualified Code(s): J81.0 - Acute pulmonary edema Plan: Lasix IV, CONTINUE TO MONITOR (2) CHF (congestive heart failure) Status: Acute Qualifiers: Congestive heart failure type: unspecified congestive heart failure type Congestive heart failure chronicity: unspecified congestive heart failure chronicity Qualified Code(s): I50.9 - Heart failure, unspecified Plan: LASIX 40MG IV BID X 2 DOSES, CONTINUE COREG AND ALDACTONE, CHECK CHEST XRAY, CONTINUE TO MONITOR (3) Respiratory distress Status: Acute Plan: SUPPLEMENTAL OXYGEN, CHECK ABG, CONTINUE TO MONITOR (4) Urinary tract infection Status: Acute Qualifiers: Urinary tract infection type: acute cystitis Hematuria presence: without hematuria Indwelling urinary catheter type: I Encounter type: E Qualified Code(s): N30.00 - Acute cystitis without hematuria Plan: ROCEPHIN 1 GM IV DAILY, CONTINUE TO MONITOR (5) Atrial fibrillation with controlled ventricular response Status: Acute Plan: CONTINUE COUMADIN, CONTINUE TO MONITOR (6) Hypothyroidism Status: Chronic Qualifiers: Hypothyroidism type: acquired Qualified Code(s): E03.9 - Hypothyroidism, unspecified Plan: CONTINUE SYNTHROID, CONTINUE TO MONITOR (7) Depression Status: Chronic Qualifiers: Depression Type: major depressive disorder Major depression recurrence: recurrent Active/Remission status: remission status unspecified Major depression episode severity: M Psychotic features: P Trimester: T Qualified Code(s): F33.9 - Major depressive disorder, recurrent, unspecified Plan: CONTINUE PROZAC, CONTINUE TO MONITOR (8) Dyslipidemia Status: Chronic Plan: CONTINUE LIPITOR, CONTINUE TO MONITOR (9) Hypertension Status: Chronic Qualifiers: Hypertension type: essential hypertension Qualified Code(s): I10 - Essential (primary) hypertension Plan: CONTINUE COREG, CONTINUE TO MONITOR (10) Urinary tract infection Status: Acute Qualifiers: Urinary tract infection type: U Hematuria presence: H Indwelling urinary catheter type: I Encounter type: E
[2017-01-29] MEDS: LIPITOR TAB 20 MG PO SCH (20:29)
[2017-01-29] MEDS: PATIENT'S HOME MEDICATION (Mirabegron [Myrbetriq] 25 MG) PO SCH (20:30)
[2017-01-29] MEDS: COUMADIN TAB 6 MG PO SCH (20:30)
[2017-01-29] MEDS: MORPHINE SULFATE INJ 2 MG IVP PRN (20:41)
[2017-01-30] MEDS: DUONEB 0.5 MG/3 MG NEB SCH ×3 (01:12→09:22)
[2017-01-30 06:05] LABS: BASOPHILS # (AUTO) 0.1 X10^3/uL (0.0-0.1); BASOPHILS % (AUTO) 0.8 % (0.2-1.0); EOSINOPHILS # (AUTO) 0.4 x10^3/uL (0.0-0.2); EOSINOPHILS % (AUTO) 5.6 % (0.9-2.9); HEMATOCRIT 39.9 % (36.0-47.0); HEMOGLOBIN 13.4 g/dL (12.0-16.0); LYMPHOCYTES # (AUTO) 1.2 X10^3/uL (1.3-2.9); LYMPHOCYTES % (AUTO) 17.7 % (21.0-51.0); MEAN CORPUSCULAR HEMOGLOBIN 29.6 pg (27.0-34.0); MEAN CORPUSCULAR HGB CONC 33.6 g/dL (33.0-35.0); MEAN CORPUSCULAR VOLUME 88.1 fL (80.0-100.0); MEAN PLATELET VOLUME 8.4 fL (7.4-11.0); MONOCYTES # (AUTO) 0.8 x10^3/uL (0.3-0.8); MONOCYTES % (AUTO) 11.6 % (0.0-13.0); NEUTROPHILS # (AUTO) 4.4 x10^3/uL (2.2-4.8); NEUTROPHILS % (AUTO) 64.3 % (42.0-75.0); PLATELET COUNT 209 X10^3/uL (150.0-450.0); RED BLOOD COUNT 4.53 X10^6/uL (3.5-5.4); RED CELL DISTRIBUTION WIDTH 15.9 % (11.6-16.5); WHITE BLOOD COUNT 6.9 X10^3/uL (3.6-10.0)
[2017-01-30 06:37] LABS: ALANINE AMINOTRANSFERASE 17 Units/L (12-78); ALBUMIN 2.9 g/dL (3.4-5.0); ALKALINE PHOSPHATASE 110 Units/L (46-116); ASPARTATE AMINO TRANSFERASE 18 Units/L (15-37); BLOOD UREA NITROGEN 23 mg/dL (7-18); CALCIUM 8.5 mg/dL (8.5-10.1); CARBON DIOXIDE 33.8 mmol/L (21-32); CHLORIDE 94 mmol/L (98-107); COR CA(FOR HYPOALB) 9.4 mg/dL (8.5-10.1); CREATININE 1.09 mg/dL (0.55-1.02); GLUCOSE 103 mg/dL (65-99); SODIUM 133 mmol/L (136-145); TOTAL PROTEIN 8.2 g/dL (6.4-8.2); eGFR BLACK RACES > 60 (>60); eGFR NON BLACK RACES 52 (>60)
--- NOTE | 2017-01-30 06:42 | RAD ---
HISTORY: Shortness of breath Study: Chest one view Comparison: January 29, 2017, January 28, 2017 Findings: The heart is enlarged. Pulmonary venous congestion is unchanged. No interstitial or alveolar edema i s identified. No alveolar infiltrates are present. There is subsegmental atelectasis in the right ye ng base. The bony thorax is unremarkable. IMPRESSION: Cardiomegaly with pulmonary venous congestion, unchanged Subsegmental atelectasis right lung base Reported By:
[2017-01-30] MEDS: SYNTHROID 100 mcg TAB PO SCH (09:14)
[2017-01-30] MEDS: NORCO 5/325 MG TAB PO SCH (09:14)
[2017-01-30] MEDS: ROCEPHIN VIAL 1 GM 1 GM in NS 50 ML IV + SPIKE MINIBAG* 50 ML IV SCH (09:14)
[2017-01-30] MEDS: K-DUR TAB 20 MEQ PO SCH (09:14)
[2017-01-30] MEDS: PROzac PO SCH (09:14)
[2017-01-30] MEDS: COREG TAB 25 MG PO SCH (09:15)
[2017-01-30] MEDS: ASPIRIN 81 MG CHEWTAB PO SCH (09:15)
[2017-01-30] MEDS: ALDACTONE TAB 25 MG PO SCH (09:15)
[2017-01-30] MEDS: NYSTATIN POWDER TOP SCH (09:15)
[2017-01-30] MEDS: TRAMADOL HCL 200 MG PO SCH (09:20)
[2017-01-30] MEDS: PULMICORT NEB TX 0.5 MG NEB SCH (09:22)
[2017-01-30 13:34] VITALS: BP 128/56
== END 2017-01-30 13:20 | disposition home health service (06) | DRG 189 ==
LOC: ER 10:48 → ICU 12:21
PROVIDERS: ADMIT Obstetrics & Gynecology Obstetrics; ATTEND Internal Medicine
DX: J81.0 Acute pulmonary edema (principal); I48.91 Unspecified atrial fibrillation; N30.00 Acute cystitis without hematuria; R06.02 Shortness of breath; R60.0 Localized edema; I50.9 Heart failure, unspecified; J44.9 Chronic obstructive pulmonary disease, unspecified; F33.8 Other recurrent depressive disorders; M13.89 Other specified arthritis, multiple sites; E78.2 Mixed hyperlipidemia; E11.65 Type 2 diabetes mellitus with hyperglycemia; I10 Essential (primary) hypertension; E03.8 Other specified hypothyroidism; R06.09 Other forms of dyspnea; R94.31 Abnormal electrocardiogram [ECG] [EKG]; J98.11 Atelectasis; R79.1 Abnormal coagulation profile; R07.89 Other chest pain
CPT/HCPCS: 36415; 36600; 51702; 71010; 80053; 80061; 81001; 82550; 82553; 82803; 83735; 83880; 84484; 85025; 85610; 85730; 87086; 87088; 87186; 93005; 94640; 96365; 96374; 99284; 99285; A4216; A4217; A4222; J0696; J1940; J2270; J2920; J7620; J7626

== ENCOUNTER 2017-05-18 17:00 | Emergency (ER) | payer OTHER, BC ==
[2017-05-18] MEDS ORDERED: NS 1000 ML 1,000 ML ONE (17:28)
--- NOTE | 2017-05-18 17:28 | DR.CA ---
HPI - Time Seen Time seen: 17:06 - HPI Comment HPI Comment: HERE VIA EMS INTUBATED AND PULSELESS. EMS RESPONDED TO PATIENT WITH AGONAL BREATHING WITH WEAK PULSE. PATIENTS RELATIVE SAID SHE WAS WEAK AT HOME. SHE TOOK HER C-PAP OFF AND WILL NOT PUT IT ON. SHE WAS BLUE WHEN EMS GOT TO HER. IN ED BRIEF RESPONSE TO CODE. THEN HR STOP. THEN ANOTHER ROUND OF ACLS PROTOCOL RESUSCITATION. SHE PLACE ON EPI DRIP. - Complaint Chief Complaint Doctor Comments: CARDIOPULMONARY ARREST. - Reviewed Nurses Notes Review: Yes - Source History Provided: Family Member, EMS - Mode of arrival Mode of Arrival: Stretcher - Context Onset: At Rest History R/T Cardiac Arrest: Prior Cardiac Disease Prehospital Care: Initial Rhythm: PEA Prehospital: Treatment: Intubation, IV Prehospital: Response to Treatment: Transient Return of Pulse PMH - PMH Past Medical History: Anxiety, Arthritis, Asthma, COPD, Diabetes, Dyslipidemia, Hypertension, Hypothyroidism, PR Past Surgical History: Yes Surgical History: Angioplasty/Stents, Appendectomy, Cholecystectomy, Hysterectomy, Ortho Surgery - Family History Family Medical History: Diabetes Mellitus, Cancer, PR, Coronary Artery Disease, Hypertension - Social History Do you use any recreational Drugs:: No ROS - Review of Systems Constitutional: Other (PERIPHERAL CYANOSIS) Eyes: Other (DILATED FIX PU[PILS) ENTM: negative: No Symptoms Reported (PATIENT INTUBATED WITH GOOD BILATERAL BREATHSOUNDS.) Respiratoy: Wheezing Cardiovascular: Edema Gastrointestinal/Abdominal: negative: Vomiting Genitourinary: Other (PALOMINO CATH, URINE IN BLADDER.) Neurological: negative: Other (SEIZURE ACTIVITIES NOTED, TONIC CLONIC) Musculoskeletal: Other Integumentary: Rash, Other (EDEMA) Hematologic/Lymphatic: negative: Easy Bleeding, Easy Bruising Endocrine: Flushing Unable to Obtain Due To: Intubated (UNRESPONSIVE.) PE - Vitals Vital Signs: Pulse Resp BP BP BP BP Pulse Ox 05/18/17 20:45 0 L 0 L 0/0 0 L 05/18/17 20:30 105 H 82/61 05/18/17 20:00 109 H 104/66 05/18/17 19:30 111 H 92/63 05/18/17 19:00 106 H 98/50 05/18/17 18:45 111 H 99/56 99 05/18/17 18:30 97 H 96/49 99 05/18/17 18:15 98 H 82/52 05/18/17 18:00 101 H 97/62 05/18/17 17:30 137 H 173/98 05/18/17 17:12 153 H 57/20 68 L 05/18/17 17:06 88 79/40 99 01/30/17 12:00 128/56 128/56 01/24/17 18:00 130/77 - General Limitations: Other (UNRESPONSIVE) General Appearance: Obese, Other (UNRESPONSIVE) - Head Head Exam: Atraumatic - Eyes Eyes: Pupils: Fixed, Dilated - ENT ENT Exam: Normal External Ear Exam - Airway Airway: Intubated ET tube placement confirmed by: CXR Gag: negative: Normal (INTUBATED) - Neck Neck Exam: Trachea Midline - Chest Chest Inspection: Symmetric Chest Wall Rise Expanded Chest Exam: Other (NONE) - Respiratory Ventilation: Assisted Respiratory Exam: Other (GOOD BREATH SOUND BILATERALLY VIA VENTILATION BYAMBU BAG.) Respiratory Exam: Bilateral Wheezing, Bilateral Rhonchi - Cardiovascular Cardiovascular Exam: Tachycardia, Other (HYPOTENSION) - Abdominal Exam Abdominal Exam: Other (DISTENDED ABDOMEN) - Extremities Extremities Exam: Edema - Neurologic Neurological Exam: Other (UNRESPONSIVE) - Skin Skin Exam: Rash, Cyanosis, Erythema - Diagnosis Discharge Problem: Cardiopulmonary arrest - Discharge Plan Disposition: 20 Condition: Stable - Follow ups/Referrals Follow ups/Referrals: Pradip Jimenez [Primary Care Provider] - 3 days - Instructions MDM - Addition Information Additional Information Obtained From: Family - Differential Diagnosis Differential Diagnosis: Cardiopulmonary Arrest Course - Treatment Treatment: FAMILY SIGN DNR.DO NOT WISH HERTRANSFER OUT TO ANOTHER HOSPITAL. - Consultation Consultation Comments: PATIENT STOP BREATHIND AND THERE WAS NO HB, BP OR PULSE. PUPILS DILATED AND FIX. SHE WAS PRONOUNCE AT 21:56PM. - Education/Counseling Education/Counseling: Family Educated On: Treatment, Diagnosis ROR - Labs Reviewed Result Diagrams: 05/18/17 16:50 05/18/17 16:50 Laboratory: 05/18/17 17:49 Urine,Catheterized Urine Culture - Preliminary WBC 20.4 X10^3/uL (3.6-10.0) H 05/18/17 16:50 RBC 4.72 X10^6/uL (3.5-5.4) 05/18/17 16:50 Hgb 13.3 g/dL (12.0-16.0) 05/18/17 16:50 Hct 42.2 % (36.0-47.0) 05/18/17 16:50 MCV 89.5 fL (80.0-100.0) 05/18/17 16:50 MCH 28.2 pg (27.0-34.0) 05/18/17 16:50 MCHC 31.5 g/dL (33.0-35.0) L 05/18/17 16:50 RDW 18.0 % (11.6-16.5) H 05/18/17 16:50 Plt Count 289 X10^3/uL (150.0-450.0) 05/18/17 16:50 MPV 8.5 fL (7.4-11.0) 05/18/17 16:50 Neut % 79.0 % (42.0-75.0) H 05/18/17 16:50 Lymph % 18.6 % (21.0-51.0) L 05/18/17 16:50 [place] % 1.8 % (0.0-13.0) 05/18/17 16:50 Eos % 0.2 % (0.9-2.9) L 05/18/17 16:50 Baso % 0.4 % (0.2-1.0) 05/18/17 16:50 Neut # 16.1 x10^3/uL (2.2-4.8) H 05/18/17 16:50 Lymph # 3.8 X10^3/uL (1.3-2.9) H 05/18/17 16:50 [place] # 0.4 x10^3/uL (0.3-0.8) 05/18/17 16:50 Eos # 0.0 x10^3/uL (0.0-0.2) 05/18/17 16:50 Baso # 0.1 X10^3/uL (0.0-0.1) 05/18/17 16:50 Absolute Nucleated RBC 0.2 /100WBC 05/18/17 16:50 Sample Site Lra 05/18/17 17:42 ABG pH 7.280 (7.35-7.45) L 05/18/17 17:42 ABG pCO2 35.0 mmHg (35.0-45.0) 05/18/17 17:42 ABG pO2 129.0 mmHg (80.0-100.0) H 05/18/17 17:42 ABG HCO3 16.4 mmol/L (22-26) L* 05/18/17 17:42 ABG O2 Saturation 99.0 % (90-100) 05/18/17 17:42 ABG Base Excess -9.5 mmol/L (-2.0-2.0) L 05/18/17 17:42 Tra Test Pos 05/18/17 17:42 A-a Gradient 540.0 mmHg 05/18/17 17:42 FiO2 100 05/18/17 17:42 Blood Gas Comments Lilliam well mm 05/18/17 17:42 Sodium 139 mmol/L (136-145) 05/18/17 16:50 Corrected Sodium 142 mmol/L (136-145) 05/18/17 16:50 Potassium 3.7 mmol/L (3.5-5.1) 05/18/17 16:50 Chloride 99 mmol/L (98-107) 05/18/17 16:50 Carbon Dioxide 18.5 mmol/L (21-32) L 05/18/17 16:50 BUN 8 mg/dL (7-18) 05/18/17 16:50 Creatinine 1.43 mg/dL (0.55-1.02) H 05/18/17 16:50 Est GFR (MDRD) Af Amer 46 (>60) L 05/18/17 16:50 Est GFR (MDRD) Non-Af 38 (>60) L 05/18/17 16:50 Glucose 219 mg/dL (65-99) H 05/18/17 16:50 Lactic Acid 10.8 mmol/L (0.4-2.0) H 05/18/17 16:50 Calcium 8.4 mg/dL (8.5-10.1) L 05/18/17 16:50 Corrected Calcium 9.5 mg/dL (8.5-10.1) 05/18/17 16:50 Total Bilirubin 1.30 mg/dL (0.2-1.0) H 05/18/17 16:50 AST 38 Units/L (15-37) H 05/18/17 16:50 ALT 17 Units/L (12-78) 05/18/17 16:50 Alkaline Phosphatase 222 Units/L (46-116) H 05/18/17 16:50 Creatine Kinase 80 Units/L (26-192) 05/18/17 16:50 CK-MB (CK-2) < 1.0 ng/mL (0-4.0) 05/18/17 16:50 CK/CKMB % Calc 1.3 % (<4) 05/18/17 16:50 Troponin I < 0.02 ng/mL (0-1.5) 05/18/17 16:50 C-Reactive Protein 40.00 mg/L (0-3.0) H 05/18/17 16:50 Total Protein 7.7 g/dL (6.4-8.2) 05/18/17 16:50 Albumin 2.6 g/dL (3.4-5.0) L 05/18/17 16:50 Globulin 5.1 g/dL (2.5-4.5) H 05/18/17 16:50 Albumin/Globulin Ratio 0.5 Ratio (1.1-2.1) L 05/18/17 16:50 Specimen Type Catherized urine 05/18/17 17:49 Urine Color Yellow (YELLOW) 05/18/17 17:49 Urine Appearance Cloudy (CLEAR) 05/18/17 17:49 Urine pH 7.0 (5.0 - 8.0) 05/18/17 17:49 Ur Specific [place] 1.010 (1.000-1.030) 05/18/17 17:49 Urine Protein 2+ (NEGATIVE) 05/18/17 17:49 Urine Glucose (UA) Negative (NEGATIVE) 05/18/17 17:49 Urine Ketones Negative (NEGATIVE) 05/18/17 17:49 Urine Occult Blood 3+ (NEGATIVE) 05/18/17 17:49 Urine Nitrite Negative (NEGATIVE) 05/18/17 17:49 Urine Bilirubin Negative (NEGATIVE) 05/18/17 17:49 Urine Urobilinogen 4+ (NORMAL) 05/18/17 17:49 Ur Leukocyte Esterase 3+ (NEGATIVE) 05/18/17 17:49 Urine RBC 0 - 4 /HPF (NEGATIVE) 05/18/17 17:49 Urine WBC Tntc with clumps /HPF (NEGATIVE) 05/18/17 17:49 Ur Squamous Epith Cells Rare /HPF (NEGATIVE) 05/18/17 17:49 Amorphous Sediment 1+ /HPF (NEGATIVE) 05/18/17 17:49 Urine Bacteria 3+ /HPF (NEGATIVE) 05/18/17 17:49 Ur Culture Indicated? Yes/culture set up 05/18/17 17:49 Urine Opiates Screen Negative (NEG=<300) 05/18/17 17:49 Urine Methadone Screen Negative (NEG=<300) 05/18/17 17:49 Ur Barbiturates Screen Negative (NEG=<200) 05/18/17 17:49 Ur Phencyclidine Scrn Negative (NEG=<25) 05/18/17 17:49 Ur Amphetamines Screen Negative (NEG=<1000) 05/18/17 17:49 U Benzodiazepines Scrn Negative (NEG=<200) 05/18/17 17:49 Urine Cocaine Screen Negative (NEG=<300) 05/18/17 17:49 U Marijuana (THC) Screen Negative (NEG=<50) 05/18/17 17:49
[2017-05-18 17:31] VITALS: BMI 60.5
[2017-05-18 17:40] LABS: BASOPHILS # (AUTO) 0.1 X10^3/uL (0.0-0.1); BASOPHILS % (AUTO) 0.4 % (0.2-1.0); EOSINOPHILS % (AUTO) 0.2 % (0.9-2.9); HEMATOCRIT 42.2 % (36.0-47.0); HEMOGLOBIN 13.3 g/dL (12.0-16.0); LYMPHOCYTES # (AUTO) 3.8 X10^3/uL (1.3-2.9); LYMPHOCYTES % (AUTO) 18.6 % (21.0-51.0); MEAN CORPUSCULAR HEMOGLOBIN 28.2 pg (27.0-34.0); MEAN CORPUSCULAR HGB CONC 31.5 g/dL (33.0-35.0); MEAN CORPUSCULAR VOLUME 89.5 fL (80.0-100.0); MEAN PLATELET VOLUME 8.5 fL (7.4-11.0); MONOCYTES # (AUTO) 0.4 x10^3/uL (0.3-0.8); MONOCYTES % (AUTO) 1.8 % (0.0-13.0); NEUTROPHILS # (AUTO) 16.1 x10^3/uL (2.2-4.8); PLATELET COUNT 289 X10^3/uL (150.0-450.0); RED BLOOD COUNT 4.72 X10^6/uL (3.5-5.4); WHITE BLOOD COUNT 20.4 X10^3/uL (3.6-10.0)
[2017-05-18] MEDS ORDERED: ATIVAN INJ 2 MG VIAL ONE (17:49)
[2017-05-18 17:50] LABS: ABG BASE EXCESS -9.5 mmol/L (-2.0-2.0)
[2017-05-18 17:51] LABS: ABG ALLEN TEST POS; ABG HCO3 16.4 mmol/L (22-26); FRACTIONATED INSPIRED OXYGEN 100
[2017-05-18] MEDS: ADRENALINE CHL INJ 3 MG in NS 250 ML IV 247 ML IV PRN ×3 (17:53→21:40)
[2017-05-18] MEDS ORDERED: DOPAMINE IV PREMIX 400 MG 400 MG/250 ML BAG IV ONE (17:54)
[2017-05-18] MEDS ORDERED: ATIVAN INJ 2 MG VIAL IVP ONE (17:55)
[2017-05-18] MEDS ORDERED: NS 1/2 1000 ML IV 1,000 ML IV ONE (17:58)
[2017-05-18] MEDS ORDERED: ROCEPHIN 1 GM IV PREMIX 1 GM/50 ML IV.SOLN. IV ONE (17:58)
[2017-05-18 17:59] LABS: BLOOD UREA NITROGEN 8 mg/dL (7-18); CARBON DIOXIDE 18.5 mmol/L (21-32); CHLORIDE 99 mmol/L (98-107); COR NA(FOR HYPERGLY) 142 mmol/L (136-145); CREATININE 1.43 mg/dL (0.55-1.02); SODIUM 139 mmol/L (136-145); TROPONIN I < 0.02 ng/mL (0-1.5); eGFR BLACK RACES 46 (>60); eGFR NON BLACK RACES 38 (>60)
[2017-05-18] MEDS ORDERED: VERSED 100 MG in NS 100 ML IV 80 ML IV PRN (18:01)
[2017-05-18 18:03] LABS: ALANINE AMINOTRANSFERASE 17 Units/L (12-78); ALBUMIN 2.6 g/dL (3.4-5.0); ALKALINE PHOSPHATASE 222 Units/L (46-116); ASPARTATE AMINO TRANSFERASE 38 Units/L (15-37); CKMB % 1.3 % (<4); CREATINE KINASE 80 Units/L (26-192); CREATINE KINASE MB < 1.0 ng/mL (0-4.0); TOTAL PROTEIN 7.7 g/dL (6.4-8.2)
[2017-05-18] MEDS ORDERED: ROCEPHIN VIAL 1 GM 1 GM in NS 50 ML IV + SPIKE MINIBAG* 50 ML IV ONE (18:05)
[2017-05-18] MEDS ORDERED: SODIUM BICARBONATE 8.4% INJ ADULT IVP ONE ×2 (18:09→18:10)
--- NOTE | 2017-05-18 18:15 | DR.GENAD ---
HPI - PCP Primary Care Physician: UNSURE - Complaint/Symptoms Chief Complaint:: UNRESPONSIVE - Nurses notes reviewed Nurses Notes Review: Yes - Source History Provided: Patient, EMS - Mode of Arrival Mode of Arrival: EMS - Timing Onset of Chief Complaint: 05/18/17 Came on: Suddenly - Duration Duration: Constant Duration: Days - Severity Severity: Moderate PMH - PMH Past Medical History: No (UNSURE) Past Medical History: Anxiety, Arthritis, Asthma, COPD, Diabetes, Dyslipidemia, Hypertension, Hypothyroidism, [place] Past Surgical History: No Surgical History: Unknown - Family History History of Family Medical Conditions: No (UNKNOWN) Family Medical History: Diabetes Mellitus, Cancer, [place], Coronary Artery Disease, Hypertension - Social History Do you use any recreational Drugs:: No - infectious screening Have you traveled outside the country in the last 6 months?: No PE - Vital Signs Vitals: Pulse Rate 110 Respiratory Rate 0 Blood Pressure [Right Arm] 130/77 Blood Pressure [Left Arm] 128/56 Blood Pressure 128/71 O2 Sat by Pulse Oximetry 98 - Follow ups/Referrals Follow ups/Referrals: FRANCESCO DIAZ [Primary Care Provider] - 3 days - Instructions
[2017-05-18 18:18] LABS: BILIRUBIN,URINE NEGATIVE (NEGATIVE); BLOOD/HEMOGLOBIN,URINE 3+ (NEGATIVE); GLUCOSE, URINE NEGATIVE (NEGATIVE); KETONES,URINE NEGATIVE (NEGATIVE); LEUKOCYTE ESTERASE ,URINE 3+ (NEGATIVE); NITRITES,URINE NEGATIVE (NEGATIVE); PROTEIN,URINE 2+ (NEGATIVE); UROBILINOGEN,URINE 4+ (NORMAL)
[2017-05-18 18:19] LABS: CALCIUM 8.4 mg/dL (8.5-10.1)
--- NOTE | 2017-05-18 18:21 | RAD ---
HISTORY: ET tube placement Study: Single-view chest Comparison: January 30, 2017 Findings: An ET tube is noted terminating above the corine. The heart is enlarged with central vascular congest ion as well as diffuse interstitial and airspace opacity with left basilar fluid and consolidation fa vored to represent pulmonary edema in the setting of congestive failure. Pneumonia is also considered but less likely. There is no pneumothorax. IMPRESSION: Satisfactory ETT placement. Radiographic findings favored to represent pulmonary edema in the setting of congestive failure. Reported By:
[2017-05-18 18:49] LABS: APPEARANCE,URINE CLOUDY (CLEAR); COLOR,URINE YELLOW (YELLOW); RBC,URINE 0 - 4 /HPF (NEGATIVE); SQUAMOUS EPITHELIAL CELL,UR RARE /HPF (NEGATIVE)
[2017-05-18 18:50] LABS: AMORPHOUS SEDIMENT,UR 1+ /HPF (NEGATIVE); BACTERIA,URINE 3+ /HPF (NEGATIVE)
[2017-05-18 19:11] LABS: COR CA(FOR HYPOALB) 9.5 mg/dL (8.5-10.1); LACTIC ACID 10.8 mmol/L (0.4-2.0)
[2017-05-18 21:36] VITALS: BP 0/0
== END 2017-05-18 21:56 | disposition expired ==
LOC: ER 17:00
DX: I46.9 Cardiac arrest, cause unspecified (principal); B96.29 Other Escherichia coli [E. coli] as the cause of diseases classified elsewhere
CPT/HCPCS: 36415; 36600; 71010; 80053; 80307; 81001; 82550; 82553; 82803; 83605; 84484; 85025; 86140; 87040; 87086; 87088; 87186; 93005; 99285; A4222; A4618; G0434; J0696; J2060; J2250